=== PATIENT | male | born 1935 | race Hispanic/Latino ===

== ENCOUNTER 2016-11-18 16:49 | Inpatient (IN) | payer MEDICARE, BC ==
[2016-11-18 16:49] VITALS: BMI 26.2
[2016-11-18 17:44] LABS: ABG ALLEN TEST YES; ARTERIAL BLOOD GAS HCO3 27.6 mmol/L (21-28); ARTERIAL BLOOD GAS PH 7.51 (7.35-7.45); ARTERIAL BLOOD GAS PO2 55 mm/Hg (80-100)
[2016-11-18 17:49] LABS: BASO % 0.2 % (0.0-2.0); EOS % 0.2 % (0.0-4.0); HEMATOCRIT 25.9 % (35.0-51.0); LYMPH # 0.3 K/uL (1.0-4.3); LYMPH % 3.7 % (20.0-40.0); MEAN CELL VOLUME 90.7 fl (80.0-94.0); MEAN CORPUSCULAR HEMOGLOBIN 30.4 pg (27.0-31.0); MEAN CORPUSCULAR HGB CONC 33.5 g/dL (33.0-37.0); MONO # 0.2 K/uL (0.0-0.8); MONO % 3.2 % (0.0-10.0); NEUT # 6.5 K/uL (1.8-7.0); NEUT % 92.7 % (50.0-75.0); NRBC % 0.1 % (0.0-0.0); RED CELL DISTRIBUTION WIDTH 20.5 % (11.5-14.5)
--- NOTE | 2016-11-18 17:50 | ED PDOC ---
HPI: Fever Fever Onset Was: 11/18/16 (morning) The Fever Was Measured: Oral Recent Sick Contacts: No Have you had recent travel within the past 21 days to any of the following countries: [place], [place], [place] or [place]?: No Does Patient Have Hx Of Febrile Seizures: No Did The Patient Have A Seizure Today: No Symptoms Associated With Fever: Other (difficulty moving) Additional Comments: 81 year old male presents to ED with complaints of a fever since this morning and a past medical history of HTN, CAD, hyperlipidemia, and CVA. (+) difficulty moving, diaphoresis, rhinorrhea, cough, and decreased appetite. (-) sore throat, vomiting, diarrhea, rash, or swelling. 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 Denies recent travel or sick contacts. Past Medical History Reviewed: Historical Data, Nursing Documentation, Vital Signs Vital Signs: Last Vital Signs Temp 101.6 F H 11/18/16 16:52 Pulse 99 H 11/18/16 16:52 Resp 16 11/18/16 16:52 BP 151/66 H 11/18/16 16:52 Pulse Ox 95 11/18/16 18:20 - Medical History PMH: CAD, CVA, HTN, Hypercholesterolemia, Hyperlipidemia, Malignancy (MDS cancer ), Chronic Kidney Disease Denies: No Chronic Diseases, Diabetes - Surgical History Surgical History: CABG, Cholecystectomy, Pacemaker - Family History Family History: States: Unknown Family Hx - Living Arrangements Living Arrangements: With Family - Social History Current smoker - smoking cessation education provided: No Ex-Smoker (has not smoked in the last 12 months): No - Home Medications Home Medications: Ambulatory Orders Medication Instructions Recorded Aspirin [Aspirin Chewable] 81 mg PO DAILY 03/07/16 Gabapentin [Neurontin] 200 mg PO DAILY 03/07/16 Gabapentin [Neurontin] 300 mg PO HS 03/07/16 Metoprolol Succinate [Toprol XL] 50 mg PO DAILY 03/07/16 Simvastatin [Zocor] 80 mg PO DAILY 03/07/16 Solifenacin Succinate [Vesicare] 5 mg PO DAILY 03/07/16 Tamsulosin HCl [Flomax] 2 cap PO DAILY 03/07/16 Esomeprazole Magnesium [Nexium 22.3 mg PO DAILY 04/02/17 24Hr] - Allergies Allergies/Adverse Reactions: Allergies Allergy/AdvReac Type Severity Reaction Status Date / Time No Known Allergies Allergy Verified 11/18/16 16:52 Review of Systems ROS Statement: Except As Marked, All Systems Reviewed And Found Negative Constitutional: Positive for: Fever, Sweats, Weakness (difficulty moving) ENT: Positive for: Nose Discharge. Negative for: Throat Pain Respiratory: Positive for: Cough Gastrointestinal: Positive for: Other (decreased appetite). Negative for: Vomiting, Diarrhea Musculoskeletal: Negative for: Other (swelling) Skin: Negative for: Rash Physical Exam - Reviewed Nursing Documentation Reviewed: Yes Vital Signs Reviewed: Yes - Physical Exam Appears: Positive for: Non-toxic Skin: Positive for: Warm, Dry, Pallor Eye Exam: Positive for: Normal appearance ENT: Positive for: Pharynx Is (clear). Negative for: Normal ENT Inspection ( dry mucous membranes) Neck: Positive for: Normal Cardiovascular/Chest: Positive for: Regular Rate, Rhythm (regular rate), Tachycardia. Negative for: Murmur Respiratory: Positive for: Rhonchi (inspiratory/expiratory diffuse wet rhonchi) . Negative for: Normal Breath Sounds, Rales, Wheezing, Respiratory Distress Gastrointestinal/Abdominal: Positive for: Normal Exam, Soft. Negative for: Tenderness Extremity: Positive for: Swelling (trace bilateral pitting edema) Neurologic/Psych: Positive for: Alert, Oriented (x3), Other (slow to answer questions, but normal concentration and thought process) - Laboratory Results Result Diagrams: 11/18/16 17:30 11/18/16 17:30 - ECG O2 Sat by Pulse Oximetry: 95 (RA) Pulse Ox Interpretation: Normal Medical Decision Making Medical Decision Makin Initial impression: febrile illness, dehydration DDx (not limited to): sepsis, PNA, bacteremia, anemia, pneumotropic fever, UTI, viral illness, influenza Initial plan: * ABG Shock * EKG * Lipase * Labs * Magnesium * Phosphorus * Trop I * PTT/PT * CXR * Acetaminophen 975mg PO * BCx * UCx * Influenza A B * UA * Re-eval 1800 CXR shows right lower lobe PNA. ABG demonstrates mild hypoxia. Lactic acid level: 0.6. Pt meets criteria for sepsis with tachycardia and fever , but not severe sepsis. IV antibiotics ordered for PNA coverage. DW pt and spouse findings and plan of care. Scribe Attestation: Documented by Mandi Moya acting as a scribe for Indu Valdivia MD. Scribe Attestation: All medical record entries made by the Scribe were at my direction and personally dictated by me. I have reviewed the chart and agree that the record accurately reflects my personal performance of the history, physical exam, medical decision making, and the department course for this patient. I have also personally directed, reviewed, and agree with the discharge instructions and disposition. Disposition - Clinical Impression Clinical Impression: Pneumonia Discussed With Dr.: Edward Morejon Doctor Will See Patient In The: Hospital Counseled Patient/Family Regarding: Studies Performed, Diagnosis - Disposition Disposition Time: 18:00 Condition: FAIR - Pt Status Changed To: Hospital Disposition Of: Inpatient - Admit Certification Admit to Inpatient:: After my assessment, the patient will require hospitalization for at least two midnights. This is because of the severity of symptoms shown, intensity of services needed, and/or the medical risk in this patient being treated as an outpatient. - POA Present On Arrival: None
[2016-11-18 17:59] LABS: ALB/GLOB RATIO 1.7 (1.0-2.1); ALKALINE PHOSPHATASE 62 U/L (38-126); ALT/SGPT 29 U/L (21-72); AST/SGOT 27 U/L (17-59); BILIRUBIN,TOTAL 2.7 mg/dl (0.2-1.3); BLOOD UREA NITROGEN 25 mg/dl (9-20); CALCIUM 8.9 mg/dL (8.4-10.2); CARBON DIOXIDE 26 mmol/L (22-30); CHLORIDE 104 mmol/L (98-107); GFR AFRICAN-AMERICAN > 60; GLUCOSE,RANDOM 120 mg/dL (75-110); LIPASE 65 U/L (23-300); MAGNESIUM 1.9 MG/DL (1.6-2.3); PHOSPHOROUS 2.3 mg/dl (2.5-4.5); POTASSIUM 4.7 MMOL/L (3.6-5.0); SODIUM 136 mmol/l (132-148)
[2016-11-18 18:20] LABS: PARTIAL THROMBOPLASTIN TIME 31.1 SECONDS (23.3-32.5)
[2016-11-18] MEDS ORDERED: cefTRIAXone (Rocephin) 1 gm Inj ONE (18:45)
[2016-11-18] MEDS ORDERED: Azithromycin 500 MG in Sodium Chloride 0.9% 250 ML IVPB STA (18:45)
[2016-11-18 19:08] LABS: PLATELET COUNT 104 K/uL (130-400)
[2016-11-18 19:24] LABS: EOSINOPHIL 1 % (0-7); NEUTROPHIL 92 % (42-75); SPHEROCYTES SLIGHT; TOTAL CELLS COUNTED 100
[2016-11-18 19:25] LABS: ACANTHOCYTES SLIGHT; GIANT PLATELETS PRESENT; LARGE PLATELETS PRESENT
--- NOTE | 2016-11-18 21:27 | RAD ---
HISTORY: cough fever COMPARISON: 02/17/2016 FINDINGS: LUNGS: Mild hazy opacity in the right lung base. PLEURA: No significant pleural effusion identified, no pneumothorax apparent.Biapical pleural parenchymal thickening noted. CARDIOVASCULAR: Enlarged heart. OSSEOUS STRUCTURES: The osseous structures demonstrate degenerative changes. VISUALIZED UPPER ABDOMEN: Upper abdomen is suboptimally evaluated. OTHER FINDINGS: Pacemaker noted. Midline sternotomy wires noted. IMPRESSION: Mild hazy opacity in the right lung base.
[2016-11-18] MEDS ORDERED: guaiFENesin DM 200 mg-20 mg/10 ml UD PO PRN (22:25)
[2016-11-18] MEDS ORDERED: Albuterol-Ipratrop 3 mg / 0.5 (3 ml) UD INH PRN (22:35)
[2016-11-18] MEDS: Dextrose 5%/0.45% NS 1,000 ML IV SCH (23:06)
[2016-11-19 04:25] LABS: RBC URINE 3 /hpf (0-3); URINE BILIRUBIN NEGATIVE (NEGATIVE); URINE BLOOD NEGATIVE (NEGATIVE); URINE COLOR AMBER (YELLOW); URINE GLUCOSE (UA) NEG (Normal); URINE KETONE NEGATIVE (NEGATIVE); URINE LEUKOCYTE ESTERASE NEG Leu/uL (Negative); URINE PROTEIN 30 mg/dL (NEGATIVE); WBC URINE < 1 /hpf (0-5)
[2016-11-19 07:29] LABS: HEMATOCRIT 22.8 % (35.0-51.0); MEAN CORPUSCULAR HEMOGLOBIN 30.9 pg (27.0-31.0); MEAN CORPUSCULAR HGB CONC 33.9 g/dL (33.0-37.0); RED CELL DISTRIBUTION WIDTH 20.8 % (11.5-14.5); WHITE BLOOD COUNT 6.6 K/uL (4.8-10.8)
[2016-11-19 07:52] LABS: CALCIUM 8.5 mg/dL (8.4-10.2); POTASSIUM 4.4 MMOL/L (3.6-5.0)
--- NOTE | 2016-11-19 08:32 | CARD ---
APPROVED REPORT EKG Measurement Heart [id number] MD [id number] <Conclusion> Sinus tachycardia Right bundle branch block Left anterior fascicular block Bifascicular block Abnormal ECG
[2016-11-19] MEDS ORDERED: Patient's Own Med (Solifenacin Succinate [Vesicare] 5 MG) PO SCH (09:00)
[2016-11-19] MEDS ORDERED: ESOMEPRAZOLE MAGNESIUM 22.3 MG PO SCH (09:00)
[2016-11-19] MEDS ORDERED: Enoxaparin 30 mg Syringe SC SCH ×3 (09:00)
[2016-11-19] MEDS: Pantoprazole 40 mg EC Tab PO SCH (09:12)
[2016-11-19] MEDS: Metoprolol Succinate 50 mg XL Tab PO SCH (09:14)
[2016-11-19] MEDS: Azithromycin 500 MG in Sodium Chloride 0.9% 250 ML IVPB SCH (09:18)
--- NOTE | 2016-11-19 11:28 | CP.PCM.CON ---
History of Present Illness - History of Present Illness History of Present Illness: This 81 year old man presented to the emergency room with one day of fever, chills, fatigue and productive cough. He had no chest pain, SOB or hemoptysis. Sputum did have yellow color. A chest x-ray revealed hazy density at the right base, no clear consolidation, unable to see left CP angle because of overlying monitor cables, cardiomegaly (chronic). He feels well this morning and has no cough or SOB, no chest pain, no sputum expectoration. Past Patient History - Past Medical History & Family History Past Medical History?: Yes - Past Social History Smoking Status: Never Smoked Chewing Tobacco Use: No Cigar Use: No Alcohol: Social Drugs: Denies - CARDIAC Hx Heart Attack: Yes (1983) Hx Hypercholesterolemia: Yes Hx Hypertension: Yes Hx Pacemaker: Yes Other/Comment: Aortic valve disease. - PULMONARY Hx Pneumonia: Yes Other/Comment: Empyema. - NEUROLOGICAL HX Cerebrovascular Accident: Yes - HEENT Hx Cataracts: Yes (LEFT EYE) - RENAL Other/Comment: congenital abscence of one kidney. - ENDOCRINE/METABOLIC Hx Endocrine Disorders: No - HEMATOLOGICAL/ONCOLOGICAL Hx Cancer: Yes (MYELOPLASTIC DYSPLASTIC DISORDER) Hx Human Immunodeficiency Virus (HIV): No Other/Comment: ONGOING CHEMOTHERAPHY. Low platelet - INTEGUMENTARY Hx Dermatological Problems: No - MUSCULOSKELETAL/RHEUMATOLOGICAL Hx Falls: No Other/Comment: BACK SURGERY - GASTROINTESTINAL Hx Gall Bladder Disease: Yes - GENITOURINARY/GYNECOLOGICAL Hx Prostate Problems: Yes - PSYCHIATRIC Hx Psychophysiologic Disorder: No - SURGICAL HISTORY Hx Cataract Extraction: Yes Hx Cholecystectomy: Yes Hx Coronary Artery Bypass Graft: Yes Other/Comment: Thoracotomy (right) for empyema. - ANESTHESIA Hx Anesthesia: Yes Hx Anesthesia Reactions: No Hx Malignant Hyperthermia: No Meds Allergies/Adverse Reactions: Allergies Allergy/AdvReac Type Severity Reaction Status Date / Time No Known Allergies Allergy Verified 11/18/16 16:52 - Medications Medications: Current Medications Acetaminophen (Tylenol 325mg Tab) 650 mg PO Q4 PRN PRN Reason: Fever >100.4 F Albuterol/Ipratropium (Duoneb 3 Mg/0.5 Mg (3 Ml) Ud) 3 ml INH RQ6 PRN PRN Reason: Shortness of Breath Aspirin (Aspirin Chewable) 81 mg PO DAILY [facility] Last Admin: 11/19/16 09:13 Dose: 81 mg Atorvastatin Calcium (Lipitor) 40 mg PO DAILY@2100 [facility] Gabapentin (Neurontin) 200 mg PO DAILY [facility] Last Admin: 11/19/16 09:13 Dose: 200 mg Gabapentin (Neurontin) 300 mg PO HS [facility] Last Admin: 11/18/16 23:06 Dose: 300 mg Guaifenesin/Dextromethorphan (Robitussin Dm) 10 ml PO TID PRN PRN Reason: Cough Ceftriaxone Sodium 1 gm/ (Sodium Chloride) 100 mls @ 100 mls/hr IVPB DAILY [facility] Last Admin: 11/19/16 09:14 Dose: 100 mls/hr Azithromycin 500 mg/ Sodium (Chloride) 250 mls @ 250 mls/hr IVPB DAILY [facility] Last Admin: 11/19/16 09:18 Dose: 250 mls/hr Dextrose/Sodium Chloride (Dextrose 5%/0.45% Ns 1000 Ml) 1,000 mls @ 60 mls/hr IV [id number] [facility] Stop: 11/19/16 22:46 Last Admin: 11/18/16 23:06 Dose: 60 mls/hr Metoprolol Succinate (Toprol Xl) 50 mg PO DAILY [facility] Last Admin: 11/19/16 09:14 Dose: 50 mg Pantoprazole Sodium (Protonix Ec Tab) 40 mg PO DAILY [facility] Last Admin: 11/19/16 09:12 Dose: 40 mg Tamsulosin HCl (Flomax) 0.8 mg PO DAILY@2100 [facility] Physical Exam - Additional Findings Additional findings: Appears comfortable during the exam. Trace dependant edema, no cyanosis. No jaundice. Neck is supple and trachea midline. No palpable lymphadenopathy. Pharynx pink and moist w/o exudate. No dullness on chest percussion. Healed thoracostomy site. Soft, lipomatous chest wall mass anterior right. Diminished breath sounds at the right base posteriorly. Few sonorous rhonchi at the RLL area, no wheeze. No bronchial breath sounds or egophony. Few medium rales in the right base. Left lung is essentially clear. Heart sounds well heard, regular rhythm. Healed sternal scar. Abdomen is soft and non-tender. Results - Vital Signs Recent Vital Signs: Last Vital Signs Temp 98.3 F 11/19/16 08:24 Pulse 88 11/19/16 09:14 Resp 18 11/19/16 08:24 BP 112/57 L 11/19/16 09:14 Pulse Ox 94 L 11/19/16 08:24 - Labs Result Diagrams: 11/20/16 06:15 11/19/16 05:35 Labs: Laboratory Results - last 24 hr 11/19/16 11/19/16 04:05 05:35 WBC 6.6 RBC 2.51 L Hgb 7.7 L Hct 22.8 L MCV 91.0 MCH 30.9 MCHC 33.9 RDW 20.8 H Plt Count 75 L D Sodium 141 Potassium 4.4 Chloride 104 Carbon Dioxide 27 Anion Gap 15 BUN 29 H Creatinine 1.5 Est GFR ( Amer) 54 Est GFR (Non-Af Amer) 45 Random Glucose 112 H Calcium 8.5 Urine Color Rachel Urine Clarity Clear Urine pH 5.0 Ur Specific Gilchrist 1.024 Urine Protein 30 Urine Glucose (UA) Neg Urine Ketones Negative Urine Blood Negative Urine Nitrate Negative Urine Bilirubin Negative Urine Urobilinogen 4.0 Ur Leukocyte Esterase Neg Urine RBC (Auto) 3 Urine Microscopic WBC < 1 Assessment & Plan (1) Pneumonia Status: Acute Priority: High Comment: Right basal infiltrate with fever and no leukocytosis. Appears comfortable this morning, afebrile. If afebrile today and no worsening of CXR to be done in AM he can be switched to oral antibiotic and discharged. (2) MDS (myelodysplastic syndrome) Status: Chronic Priority: High Comment: On chemotherapy at [facility]. (3) Thrombocytopenia Status: Chronic Priority: High Comment: Secondary to the above. - Date & Time Date: 11/19/16 Time: 11:26
[2016-11-19] MEDS: Dextrose 5%/0.45% NS 1,000 ML IV SCH (16:28)
--- NOTE | 2016-11-20 06:19 | CP.PCM.HP ---
History of Present Illness - History of Present Illness History of Present Illness: This is an 81 y/o male with hx of HTN CAD and currently receiving chemotherapy for myelodysplastic syndrome was admitted thru ER for sx of productive cough with yellow greenish phlegm and low grade fever, for 1 day. CXR showed a possible infiltrate on the right lower lung. Present on Admission - Present on Admission Any Indicators Present on Admission: No History of DVT/PE: No History of Uncontrolled Diabetes: No Urinary Catheter: No Decubitus Ulcer Present: No Past Patient History - Past Medical History & Family History Past Medical History?: Yes - Past Social History Smoking Status: Never Smoked Chewing Tobacco Use: No Cigar Use: No Alcohol: Social Drugs: Denies - CARDIAC Hx Heart Attack: Yes (1983) Hx Hypercholesterolemia: Yes Hx Hypertension: Yes Hx Pacemaker: Yes Other/Comment: Aortic valve disease. - PULMONARY Hx Pneumonia: Yes Other/Comment: Empyema. - NEUROLOGICAL HX Cerebrovascular Accident: Yes - HEENT Hx Cataracts: Yes (LEFT EYE) - RENAL Other/Comment: congenital abscence of one kidney. - ENDOCRINE/METABOLIC Hx Endocrine Disorders: No - HEMATOLOGICAL/ONCOLOGICAL Hx Cancer: Yes (MYELOPLASTIC DYSPLASTIC DISORDER) Hx Human Immunodeficiency Virus (HIV): No Other/Comment: ONGOING CHEMOTHERAPHY. Low platelet - INTEGUMENTARY Hx Dermatological Problems: No - MUSCULOSKELETAL/RHEUMATOLOGICAL Hx Falls: No Other/Comment: BACK SURGERY - GASTROINTESTINAL Hx Gall Bladder Disease: Yes - GENITOURINARY/GYNECOLOGICAL Hx Prostate Problems: Yes - PSYCHIATRIC Hx Psychophysiologic Disorder: No - SURGICAL HISTORY Hx Cataract Extraction: Yes Hx Cholecystectomy: Yes Hx Coronary Artery Bypass Graft: Yes Other/Comment: Thoracotomy (right) for empyema. - ANESTHESIA Hx Anesthesia: Yes Hx Anesthesia Reactions: No Hx Malignant Hyperthermia: No Meds Allergies/Adverse Reactions: Allergies Allergy/AdvReac Type Severity Reaction Status Date / Time No Known Allergies Allergy Verified 11/18/16 16:52 Physical Exam - Head Exam Head Exam: NORMAL INSPECTION - Eye Exam Eye Exam: Normal appearance - ENT Exam ENT Exam: Mucous Membranes Moist - Respiratory Exam Respiratory Exam: Decreased Breath Sounds, Rales, Rhonchi, NORMAL BREATHING PATTERN Additional comments: noted crepitations on the right mid and lower lung - Cardiovascular Exam Cardiovascular Exam: REGULAR RHYTHM - GI/Abdominal Exam GI & Abdominal Exam: Normal Bowel Sounds - Neurological Exam Neurological exam: CN II-XII Intact, Oriented x3 - Psychiatric Exam Psychiatric exam: Normal Mood Results - Vital Signs Recent Vital Signs: Last Vital Signs Temp 98.6 F 11/20/16 05:00 Pulse 81 11/20/16 05:00 Resp 20 11/20/16 05:00 BP 114/61 11/20/16 05:00 Pulse Ox 95 11/20/16 05:00 - Labs Result Diagrams: 11/19/16 05:35 11/19/16 05:35 Labs: Laboratory Results - last 24 hr 11/19/16 05:35 WBC 6.6 RBC 2.51 L Hgb 7.7 L Hct 22.8 L MCV 91.0 MCH 30.9 MCHC 33.9 RDW 20.8 H Plt Count 75 L D Sodium 141 Potassium 4.4 Chloride 104 Carbon Dioxide 27 Anion Gap 15 BUN 29 H Creatinine 1.5 Est GFR ( Amer) 54 Est GFR (Non-Af Amer) 45 Random Glucose 112 H Calcium 8.5 Assessment & Plan (1) Pneumonia Status: Acute Priority: High (2) MDS (myelodysplastic syndrome) Status: Chronic Priority: High (3) Thrombocytopenia Status: Chronic Priority: High (4) Anemia Status: Acute (5) Dehydration Status: Acute - Assessment and Plan (Free Text) Plan: Cont meds cont hydration repeat cbc cmp in am cont iv antibiotic Pulmonary eval Dr Soliz Cardiac eval Dr Ocampo. may need epogen
[2016-11-20] MEDS ORDERED: EPOETIN ALFA 10,000 UNIT/ML ML SC ONE (06:24)
[2016-11-20 07:07] LABS: HEMATOCRIT 22.5 % (35.0-51.0); MEAN CELL VOLUME 92.3 fl (80.0-94.0); MEAN CORPUSCULAR HEMOGLOBIN 30.2 pg (27.0-31.0); MEAN CORPUSCULAR HGB CONC 32.7 g/dL (33.0-37.0); RED CELL DISTRIBUTION WIDTH 21.5 % (11.5-14.5); WHITE BLOOD COUNT 5.3 K/uL (4.8-10.8)
--- NOTE | 2016-11-20 07:38 | CP.PCM.PN ---
Subjective - Date & Time of Evaluation Date of Evaluation: 11/20/16 Time of Evaluation: 07:15 - Subjective Subjective: 81M seen and examined at bedside. Overnight events, notes reviewed. Pt reports feeling better, currently denies SOB, chest pain. Objective - Vital Signs/Intake and Output Vital Signs (last 24 hours): Temp Pulse Resp BP Pulse Ox 37.0 C 81 20 114/61 95 11/20/16 05:00 11/20/16 05:00 11/20/16 05:00 11/20/16 05:00 11/20/16 05:00 - Medications Medications: Current Medications Acetaminophen (Tylenol 325mg Tab) 650 mg PO Q4 PRN PRN Reason: Fever >100.4 F Last Admin: 11/20/16 01:53 Dose: 650 mg Albuterol/Ipratropium (Duoneb 3 Mg/0.5 Mg (3 Ml) Ud) 3 ml INH RQ6 PRN PRN Reason: Shortness of Breath Aspirin (Aspirin Chewable) 81 mg PO DAILY [facility] Last Admin: 11/19/16 09:13 Dose: 81 mg Atorvastatin Calcium (Lipitor) 40 mg PO DAILY@2099 [facility] Last Admin: 11/19/16 21:21 Dose: 40 mg Gabapentin (Neurontin) 200 mg PO DAILY [facility] Last Admin: 11/19/16 09:13 Dose: 200 mg Gabapentin (Neurontin) 300 mg PO HS [facility] Last Admin: 11/19/16 21:21 Dose: 300 mg Guaifenesin/Dextromethorphan (Robitussin Dm) 10 ml PO TID PRN PRN Reason: Cough Ceftriaxone Sodium 1 gm/ (Sodium Chloride) 100 mls @ 100 mls/hr IVPB DAILY [facility] Last Admin: 11/19/16 09:14 Dose: 100 mls/hr Azithromycin 500 mg/ Sodium (Chloride) 250 mls @ 250 mls/hr IVPB DAILY [facility] Last Admin: 11/19/16 09:18 Dose: 250 mls/hr Metoprolol Succinate (Toprol Xl) 50 mg PO DAILY [facility] Last Admin: 11/19/16 09:14 Dose: 50 mg Pantoprazole Sodium (Protonix Ec Tab) 40 mg PO DAILY [facility] Last Admin: 11/19/16 09:12 Dose: 40 mg Tamsulosin HCl (Flomax) 0.8 mg PO DAILY@2100 [facility] Last Admin: 11/19/16 21:21 Dose: 0.8 mg - Labs Labs: 11/20/16 06:15 11/19/16 05:35 PT 12.6 SECONDS (9.6-11.2) H 11/18/16 17:30 INR 1.21 (0.92-1.08) H 11/18/16 17:30 APTT 31.1 SECONDS (23.3-32.5) 11/18/16 17:30 - Constitutional Appears: Well, Non-toxic, No Acute Distress - Head Exam Head Exam: ATRAUMATIC, NORMAL INSPECTION - Eye Exam Eye Exam: EOMI, Normal appearance - ENT Exam ENT Exam: Mucous Membranes Dry - Neck Exam Neck Exam: Full ROM. absent: Lymphadenopathy - Respiratory Exam Respiratory Exam: Rhonchi (coarse bibasilar), Wheezes, NORMAL BREATHING PATTERN - Cardiovascular Exam Cardiovascular Exam: REGULAR RHYTHM (Paced). absent: JVD - GI/Abdominal Exam GI & Abdominal Exam: Soft, Normal Bowel Sounds. absent: Tenderness - Extremities Exam Extremities Exam: Full ROM, Normal Capillary Refill, Normal Inspection. absent : Pedal Edema - Neurological Exam Neurological Exam: Alert, Awake, Oriented x3 - Psychiatric Exam Psychiatric exam: Normal Affect, Normal Mood - Skin Skin Exam: Normal Color, Warm Assessment and Plan (1) Pneumonia Assessment & Plan: RLL pneumonia this AM w/associated effusion and continuing to be febrile throughout the night. - Pulmonary Consult (Dr Soliz) noted: rec change abx and rpt decubitus CXR in AM 4/5 - Abx changed to Levoquin/Clindamycin - Trend fever - Incentive spiromtery - c/w Guaifensin - OOB to chair Status: Acute (2) Dehydration Assessment & Plan: Likely 2/2 to illness and poor PO intake. - Encourage PO hydration - CMP in AM Status: Acute (3) DVT prophylaxis Assessment & Plan: Not a candidate for Lovenox or Heparin. SCDs, b/l lower extremities, continuous while in bed Status: Acute (4) MDS (myelodysplastic syndrome) Assessment & Plan: Chronic, stable, managed at [place] by Dr Cuevas. Has anemia/ thrombocytopenia as a result. Manual platelet count- 80. - Heme/Onc Consult (Dr Jose Daniel Ocampo) appreciated. - Procrit x1 - CBC in AM Status: Chronic (5) Hypertension Assessment & Plan: Well-controlled - c/w home medications Status: Chronic (6) BPH (benign prostatic hypertrophy) Assessment & Plan: Well-controlled - c/w home medications Status: Chronic - Assessment and Plan (Free Text) Assessment: 81M with history of RIGHT thoracotomy for empyema now with RLL pneumonia and associated effusion not responding to initial abx. In addition, history of MDS and associated anemia/thrombocytopenia manual platelet count-80 and procrit x1. - f/u Pulmonary recs - f/u Heme/Onc recs - Started Levo/Clindamycin - Trend fever - Decubitus CXR in AM
[2016-11-20] MEDS: Pantoprazole 40 mg EC Tab PO SCH (08:45)
[2016-11-20] MEDS: Metoprolol Succinate 50 mg XL Tab PO SCH (08:46)
[2016-11-20] MEDS: Azithromycin 500 MG in Sodium Chloride 0.9% 250 ML IVPB SCH (08:46)
[2016-11-20 09:24] LABS: IRON 11 ug/dL (49-181)
--- NOTE | 2016-11-20 10:22 | CP.PCM.PN ---
Subjective - Date & Time of Evaluation Date of Evaluation: 11/20/16 Time of Evaluation: 10:18 - Subjective Subjective: Had febrile pattern yesterday evening and again early this morning. No increased leukocytosis. Repeat CXR shows persistent RLL infiltrate and small right pleural effusion. Not suitable for discharge. Will need to change antibiotic coverage; possibly vanco/zosyn or levofloxacin/ clindamycin. Patient informed of the status, resident paged. Lateral decubitus CXR for the AM tomorrow. Objective - Vital Signs/Intake and Output Vital Signs (last 24 hours): Temp Pulse Resp BP Pulse Ox 98 F 82 18 134/69 98 11/20/16 07:49 11/20/16 08:46 11/20/16 07:49 11/20/16 08:46 11/20/16 07:49 Intake and Output: 11/19/16 11/20/16 23:59 11:59 Intake Total 350 Output Total 200 Balance 150 - Medications Medications: Current Medications Acetaminophen (Tylenol 325mg Tab) 650 mg PO Q4 PRN PRN Reason: Fever >100.4 F Last Admin: 11/20/16 01:53 Dose: 650 mg Albuterol/Ipratropium (Duoneb 3 Mg/0.5 Mg (3 Ml) Ud) 3 ml INH RQ6 PRN PRN Reason: Shortness of Breath Aspirin (Aspirin Chewable) 81 mg PO DAILY [facility] Last Admin: 11/20/16 08:44 Dose: 81 mg Atorvastatin Calcium (Lipitor) 40 mg PO DAILY@2100 [facility] Last Admin: 11/19/16 21:21 Dose: 40 mg Gabapentin (Neurontin) 200 mg PO DAILY [facility] Last Admin: 11/20/16 08:44 Dose: 200 mg Gabapentin (Neurontin) 300 mg PO HS [facility] Last Admin: 11/19/16 21:21 Dose: 300 mg Guaifenesin/Dextromethorphan (Robitussin Dm) 10 ml PO TID PRN PRN Reason: Cough Ceftriaxone Sodium 1 gm/ (Sodium Chloride) 100 mls @ 100 mls/hr IVPB DAILY [facility] Last Admin: 11/20/16 08:45 Dose: 100 mls/hr Azithromycin 500 mg/ Sodium (Chloride) 250 mls @ 250 mls/hr IVPB DAILY [facility] Last Admin: 11/20/16 08:46 Dose: 250 mls/hr Metoprolol Succinate (Toprol Xl) 50 mg PO DAILY [facility] Last Admin: 11/20/16 08:46 Dose: 50 mg Pantoprazole Sodium (Protonix Ec Tab) 40 mg PO DAILY [facility] Last Admin: 11/20/16 08:45 Dose: 40 mg Tamsulosin HCl (Flomax) 0.8 mg PO DAILY@2100 [facility] Last Admin: 11/19/16 21:21 Dose: 0.8 mg - Labs Labs: 11/20/16 06:15 11/19/16 05:35 PT 12.6 SECONDS (9.6-11.2) H 11/18/16 17:30 INR 1.21 (0.92-1.08) H 11/18/16 17:30 APTT 31.1 SECONDS (23.3-32.5) 11/18/16 17:30 Assessment and Plan (1) Pneumonia Status: Acute (2) MDS (myelodysplastic syndrome) Status: Chronic (3) Thrombocytopenia Status: Chronic
--- NOTE | 2016-11-20 10:35 | RAD ---
HISTORY: pneumonia COMPARISON: 11/18/2016 TECHNIQUE: Chest PA and lateral FINDINGS: LUNGS: There is worsening right lower lobe airspace disease. The left lung is clear. PLEURA: There is a small right pleural effusion No significant left pleural effusion identified. No pneumothorax apparent. CARDIOVASCULAR: There is persistent cardiomegaly. Status post CABG. There is stable position of a left-sided dual lead transvenous permanent pacing device. OSSEOUS STRUCTURES: No significant abnormalities. VISUALIZED UPPER ABDOMEN: Normal. OTHER FINDINGS: None. IMPRESSION: Worsening right lower lobe pneumonia and small right pleural effusion.
--- NOTE | 2016-11-20 11:04 | CP.PCM.CON ---
History of Present Illness - History of Present Illness History of Present Illness: This is a 81 yrs old male who was admitted for pneumonia, chills and fever. He was diagnosed to have a thrombocytopenia but even after follow up for some time his count did not go up. 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 He was started on chemotherapy with vidaza 5 days every 28 days, Pt' s counts were doing well so the dose was cut to 4 days q 28 days. He was due for chemo on November 19, but he developed a cough ,had fever, and the CXR showed pneumonia. He was admitted and started on ceftriaxone and azithromaycin. He is afebrile and feeling a little better. His CBC showed a WBC 5.30, Hgb 7.4gms and platelets 70K. According to the pt he has not had such a low count in a long time.. No bleeding from any site. Past Patient History - Past Medical History & Family History Past Medical History?: Yes - Past Social History Smoking Status: Never Smoked Chewing Tobacco Use: No Cigar Use: No Alcohol: Social Drugs: Denies - CARDIAC Hx Heart Attack: Yes (1983) Hx Hypercholesterolemia: Yes Hx Hypertension: Yes Hx Pacemaker: Yes Other/Comment: Aortic valve disease. - PULMONARY Hx Pneumonia: Yes Other/Comment: Empyema. - NEUROLOGICAL HX Cerebrovascular Accident: Yes - HEENT Hx Cataracts: Yes (LEFT EYE) - RENAL Other/Comment: congenital abscence of one kidney. - ENDOCRINE/METABOLIC Hx Endocrine Disorders: No - HEMATOLOGICAL/ONCOLOGICAL Hx Cancer: Yes (MYELOPLASTIC DYSPLASTIC DISORDER) Hx Human Immunodeficiency Virus (HIV): No Other/Comment: ONGOING CHEMOTHERAPHY. Low platelet - INTEGUMENTARY Hx Dermatological Problems: No - MUSCULOSKELETAL/RHEUMATOLOGICAL Hx Falls: No Other/Comment: BACK SURGERY - GASTROINTESTINAL Hx Gall Bladder Disease: Yes - GENITOURINARY/GYNECOLOGICAL Hx Prostate Problems: Yes - PSYCHIATRIC Hx Psychophysiologic Disorder: No - SURGICAL HISTORY Hx Cataract Extraction: Yes Hx Cholecystectomy: Yes Hx Coronary Artery Bypass Graft: Yes Other/Comment: Thoracotomy (right) for empyema. - ANESTHESIA Hx Anesthesia: Yes Hx Anesthesia Reactions: No Hx Malignant Hyperthermia: No Meds Allergies/Adverse Reactions: Allergies Allergy/AdvReac Type Severity Reaction Status Date / Time No Known Allergies Allergy Verified 11/18/16 16:52 - Medications Medications: Current Medications Acetaminophen (Tylenol 325mg Tab) 650 mg PO Q4 PRN PRN Reason: Fever >100.4 F Last Admin: 11/20/16 01:53 Dose: 650 mg Albuterol/Ipratropium (Duoneb 3 Mg/0.5 Mg (3 Ml) Ud) 3 ml INH RQ6 PRN PRN Reason: Shortness of Breath Aspirin (Aspirin Chewable) 81 mg PO DAILY [facility] Last Admin: 11/20/16 08:44 Dose: 81 mg Atorvastatin Calcium (Lipitor) 40 mg PO DAILY@2100 [facility] Last Admin: 11/19/16 21:21 Dose: 40 mg Gabapentin (Neurontin) 200 mg PO DAILY [facility] Last Admin: 11/20/16 08:44 Dose: 200 mg Gabapentin (Neurontin) 300 mg PO HS [facility] Last Admin: 11/19/16 21:21 Dose: 300 mg Guaifenesin/Dextromethorphan (Robitussin Dm) 10 ml PO TID PRN PRN Reason: Cough Ceftriaxone Sodium 1 gm/ (Sodium Chloride) 100 mls @ 100 mls/hr IVPB DAILY [facility] Last Admin: 11/20/16 08:45 Dose: 100 mls/hr Azithromycin 500 mg/ Sodium (Chloride) 250 mls @ 250 mls/hr IVPB DAILY [facility] Last Admin: 11/20/16 08:46 Dose: 250 mls/hr Metoprolol Succinate (Toprol Xl) 50 mg PO DAILY [facility] Last Admin: 11/20/16 08:46 Dose: 50 mg Pantoprazole Sodium (Protonix Ec Tab) 40 mg PO DAILY [facility] Last Admin: 11/20/16 08:45 Dose: 40 mg Tamsulosin HCl (Flomax) 0.8 mg PO DAILY@2100 [facility] Last Admin: 11/19/16 21:21 Dose: 0.8 mg Physical Exam - Additional Findings Additional findings: Phyusical exam; Alert, well oriuented in no acute distress neck; supple, no mass, no h/s megaly Chest; Clear, no rales or rhonchi Heart; RSR, no murmur Abd; Soft, no mass, no h/s megaly Results - Vital Signs Recent Vital Signs: Last Vital Signs Temp 98 F 11/20/16 07:49 Pulse 82 11/20/16 08:46 Resp 18 11/20/16 07:49 BP 134/69 11/20/16 08:46 Pulse Ox 98 11/20/16 07:49 - Labs Result Diagrams: 11/20/16 06:15 11/19/16 05:35 Labs: Laboratory Results - last 24 hr 11/20/16 11/20/16 06:15 08:23 WBC 5.3 RBC 2.44 L Hgb 7.4 L Hct 22.5 L MCV 92.3 MCH 30.2 MCHC 32.7 L RDW 21.5 H Plt Count 70 L Iron 11 L TIBC 215 L % Saturation 5 L Ferritin 147.0 Vitamin B12 948 H Assessment & Plan - Assessment and Plan (Free Text) Assessment: Imp; Myelodysplastic syndrome, anemia , thrombocytopenia. Pneumonia. Plan: Plan; Will do a manual platelet count. He will continue the chemotherapy after his discharge from the hospital. Dr patel has already given him a epogen. Gilmer follow
[2016-11-20] MEDS: Clindamycin 600 MG in Sodium Chloride 0.9% 100 ML IVPB SCH (16:25)
[2016-11-21] MEDS: Clindamycin 600 MG in Sodium Chloride 0.9% 100 ML IVPB SCH ×3 (01:56→16:17)
[2016-11-21 06:50] LABS: BASO % 0.5 % (0.0-2.0); EOS # 0.1 K/uL (0.0-0.7); EOS % 2.8 % (0.0-4.0); HEMATOCRIT 20.6 % (35.0-51.0); LYMPH # 0.5 K/uL (1.0-4.3); LYMPH % 12.1 % (20.0-40.0); MEAN CELL VOLUME 93.4 fl (80.0-94.0); MEAN CORPUSCULAR HEMOGLOBIN 31.4 pg (27.0-31.0); MEAN CORPUSCULAR HGB CONC 33.6 g/dL (33.0-37.0); MEAN PLATELET VOLUME 11.6 fl (7.2-11.7); MONO # 0.4 K/uL (0.0-0.8); MONO % 9.2 % (0.0-10.0); NEUT # 3.2 K/uL (1.8-7.0); NEUT % 75.4 % (50.0-75.0); NRBC % 0.1 % (0.0-0.0); RED CELL DISTRIBUTION WIDTH 21.2 % (11.5-14.5); WHITE BLOOD COUNT 4.2 K/uL (4.8-10.8)
[2016-11-21 06:59] LABS: ALB/GLOB RATIO 1.3 (1.0-2.1); BILIRUBIN,TOTAL 1.9 mg/dl (0.2-1.3); CALCIUM 8.2 mg/dL (8.4-10.2); POTASSIUM 4.2 MMOL/L (3.6-5.0); TOTAL PROTEIN 5.4 G/DL (6.3-8.2)
--- NOTE | 2016-11-21 07:04 | CP.PCM.PN ---
Subjective - Date & Time of Evaluation Date of Evaluation: 11/21/16 Time of Evaluation: 06:45 - Subjective Subjective: 81M seen and examined at bedside with attending. Pt denies pain, SOB, chest pain, or palpitations, but c/o significant weakness and feeling "unsteady" when being assisted to bathroom. Objective - Vital Signs/Intake and Output Vital Signs (last 24 hours): Temp Pulse Resp BP Pulse Ox 36.9 C 86 16 117/70 97 11/21/16 05:08 11/21/16 04:12 11/21/16 04:12 11/21/16 04:12 11/21/16 04:12 - Medications Medications: Current Medications Acetaminophen (Tylenol 325mg Tab) 650 mg PO Q4 PRN PRN Reason: Fever >100.4 F Last Admin: 11/21/16 04:08 Dose: 650 mg Albuterol/Ipratropium (Duoneb 3 Mg/0.5 Mg (3 Ml) Ud) 3 ml INH RQ6 PRN PRN Reason: Shortness of Breath Last Admin: 11/21/16 02:31 Dose: 3 ml Aspirin (Aspirin Chewable) 81 mg PO DAILY [facility] Last Admin: 11/20/16 08:44 Dose: 81 mg Atorvastatin Calcium (Lipitor) 40 mg PO DAILY@2100 [facility] Last Admin: 11/20/16 21:41 Dose: 40 mg Gabapentin (Neurontin) 200 mg PO DAILY [facility] Last Admin: 11/20/16 08:44 Dose: 200 mg Gabapentin (Neurontin) 300 mg PO HS [facility] Last Admin: 11/20/16 21:41 Dose: 300 mg Guaifenesin/Dextromethorphan (Robitussin Dm) 10 ml PO TID PRN PRN Reason: Cough Levofloxacin/Dextrose (Levaquin 750mg) 150 mls @ 100 mls/hr IVPB DAILY [facility] Clindamycin Phosphate 600 mg/ (Sodium Chloride) 104 mls @ 104 mls/hr IVPB Q8 [facility] Last Admin: 11/21/16 01:56 Dose: 104 mls/hr Metoprolol Succinate (Toprol Xl) 50 mg PO DAILY [facility] Last Admin: 11/20/16 08:46 Dose: 50 mg Pantoprazole Sodium (Protonix Ec Tab) 40 mg PO DAILY [facility] Last Admin: 11/20/16 08:45 Dose: 40 mg Tamsulosin HCl (Flomax) 0.8 mg PO DAILY@2100 [facility] Last Admin: 11/20/16 21:42 Dose: 0.8 mg - Labs Labs: 11/20/16 06:15 11/19/16 05:35 PT 12.6 SECONDS (9.6-11.2) H 11/18/16 17:30 INR 1.21 (0.92-1.08) H 11/18/16 17:30 APTT 31.1 SECONDS (23.3-32.5) 11/18/16 17:30 - Constitutional Appears: Non-toxic, No Acute Distress - Head Exam Head Exam: ATRAUMATIC, NORMAL INSPECTION - Eye Exam Eye Exam: EOMI, Normal appearance. absent: Conjunctival injection (pale conjunctiva) - ENT Exam ENT Exam: Mucous Membranes Moist, Normal Exam - Neck Exam Neck Exam: Full ROM, Normal Inspection - Respiratory Exam Respiratory Exam: Decreased Breath Sounds (R>L), Wheezes (b/l diffuse ), NORMAL BREATHING PATTERN - Cardiovascular Exam Cardiovascular Exam: REGULAR RHYTHM. absent: JVD - GI/Abdominal Exam GI & Abdominal Exam: Soft, Normal Bowel Sounds. absent: Tenderness - Extremities Exam Extremities Exam: Full ROM, Normal Capillary Refill, Normal Inspection. absent : Pedal Edema - Neurological Exam Neurological Exam: Alert, Awake, Oriented x3 - Psychiatric Exam Psychiatric exam: Normal Affect, Normal Mood - Skin Skin Exam: Intact, Pallor, Warm Assessment and Plan (1) Pneumonia Assessment & Plan: RLL pneumonia (suspect bacterial) febrile to 38.1 o/n however current abx regimen <24hrs. - f/u Pulmonary Consult (Dr Soliz) recs - c/w Levoquin/Clindamycin - Trend fever - Incentive spiromtery, Q2H - c/w Guaifensin, DuoNebs - OOB to chair, BRP w/assistance - Physical Therapy Status: Acute (2) Dehydration Assessment & Plan: Clinically improved, although with BUN increase this AM. - c/w Encourage PO hydration - CMP in AM - Will monitor Status: Acute (3) DVT prophylaxis Assessment & Plan: Not a candidate for Lovenox or Heparin. SCDs, b/l lower extremities, continuous. Status: Acute (4) MDS (myelodysplastic syndrome) Assessment & Plan: Chronic, however H/H continue to decrease despite Procrit x1 yesterday. Patient symptomatic and Heme/Onc recommending PRBC transfusion at this time x2U. Will discuss possible role of antibiotics w/ Dr Ocampo. - Heme/Onc Consult (Dr Jose Daniel Ocampo): T&S w/crossmatch, 2U PRBC, - Repeat CBC this evening after transfusion - CBC in AM Status: Chronic (5) Hypertension Assessment & Plan: Well-controlled - c/w home medications Status: Chronic (6) BPH (benign prostatic hypertrophy) Assessment & Plan: Well-controlled - c/w home medications Status: Chronic - Assessment and Plan (Free Text) Assessment: 81M w/hx RIGHT thoracotomy for empyema now with RLL pneumonia some improvement after changing abx. However, worsening anemia 2/2 to MDS prompting PRBC transfusion. - f/u Pulmonary recs - f/u Heme/Onc recs - c/w Levo/Clindamycin - PRBC x2U - Trend fever - f/u official read Decubitus CXR
--- NOTE | 2016-11-21 08:38 | CP.PCM.PN ---
Subjective - Date & Time of Evaluation Date of Evaluation: 11/21/16 Time of Evaluation: 08:34 - Subjective Subjective: Pt is feeling very weak today. and says it is much more than usual. His hgb today is 6.9ms and I have a consent for transfusion of 2 units o.f packed cells. Will ck if there are any antibodies against the RBC. Objective - Vital Signs/Intake and Output Vital Signs (last 24 hours): Temp Pulse Resp BP Pulse Ox 97.7 F 78 18 123/66 99 11/21/16 08:00 11/21/16 08:00 11/21/16 08:00 11/21/16 08:00 11/21/16 08:00 - Medications Medications: Current Medications Acetaminophen (Tylenol 325mg Tab) 650 mg PO Q4 PRN PRN Reason: Fever >100.4 F Last Admin: 11/21/16 04:08 Dose: 650 mg Albuterol/Ipratropium (Duoneb 3 Mg/0.5 Mg (3 Ml) Ud) 3 ml INH RQ6 PRN PRN Reason: Shortness of Breath Last Admin: 11/21/16 02:31 Dose: 3 ml Aspirin (Aspirin Chewable) 81 mg PO DAILY [facility] Last Admin: 11/20/16 08:44 Dose: 81 mg Atorvastatin Calcium (Lipitor) 40 mg PO DAILY@2100 [facility] Last Admin: 11/20/16 21:41 Dose: 40 mg Gabapentin (Neurontin) 200 mg PO DAILY [facility] Last Admin: 11/20/16 08:44 Dose: 200 mg Gabapentin (Neurontin) 300 mg PO HS [facility] Last Admin: 11/20/16 21:41 Dose: 300 mg Guaifenesin/Dextromethorphan (Robitussin Dm) 10 ml PO TID PRN PRN Reason: Cough Levofloxacin/Dextrose (Levaquin 750mg) 150 mls @ 100 mls/hr IVPB DAILY [facility] Clindamycin Phosphate 600 mg/ (Sodium Chloride) 104 mls @ 104 mls/hr IVPB Q8 [facility] Last Admin: 11/21/16 01:56 Dose: 104 mls/hr Metoprolol Succinate (Toprol Xl) 50 mg PO DAILY [facility] Last Admin: 11/20/16 08:46 Dose: 50 mg Pantoprazole Sodium (Protonix Ec Tab) 40 mg PO DAILY [facility] Last Admin: 11/20/16 08:45 Dose: 40 mg Tamsulosin HCl (Flomax) 0.8 mg PO DAILY@2100 [facility] Last Admin: 11/20/16 21:42 Dose: 0.8 mg - Labs Labs: 11/21/16 04:30 11/21/16 04:30 PT 12.6 SECONDS (9.6-11.2) H 11/18/16 17:30 INR 1.21 (0.92-1.08) H 11/18/16 17:30 APTT 31.1 SECONDS (23.3-32.5) 11/18/16 17:30
[2016-11-21] MEDS: Pantoprazole 40 mg EC Tab PO SCH (09:09)
[2016-11-21] MEDS: Metoprolol Succinate 50 mg XL Tab PO SCH (09:09)
--- NOTE | 2016-11-21 12:40 | RAD ---
PROCEDURE: Chest radiographs HISTORY: pleural effusion COMPARISON: 11/20/2016 TECHNIQUE: PA and bilateral decubitus views were obtained. FINDINGS: There is a layering pleural effusion on the right. There is persistent right lower lobe pneumonia. The left lung is clear. There is persistent cardiomegaly. Status post CABG. There is stable position of left-sided pacemaker. IMPRESSION: Layering small right pleural effusion. Persistent right lower lobe pneumonia.
[2016-11-22] MEDS: Clindamycin 600 MG in Sodium Chloride 0.9% 100 ML IVPB SCH ×3 (01:00→18:07)
[2016-11-22 06:41] LABS: HEMATOCRIT 28.3 % (35.0-51.0); MEAN CELL VOLUME 90.6 fl (80.0-94.0); MEAN CORPUSCULAR HEMOGLOBIN 30.5 pg (27.0-31.0); MEAN CORPUSCULAR HGB CONC 33.6 g/dL (33.0-37.0); RED CELL DISTRIBUTION WIDTH 18.8 % (11.5-14.5); WHITE BLOOD COUNT 3.8 K/uL (4.8-10.8)
--- NOTE | 2016-11-22 07:08 | CP.PCM.PN ---
Subjective - Date & Time of Evaluation Date of Evaluation: 11/22/16 Time of Evaluation: 07:08 - Subjective Subjective: 81M seen and examined at bedside with attending. Pt reports feeling better, cough is more wet sounding, and says he is having trace amounts of brownish tinge to phlegm. Otherwise, no SOB, chest pain, or palpitations. Objective - Vital Signs/Intake and Output Vital Signs (last 24 hours): Temp Pulse Resp BP Pulse Ox 36.6 C 87 19 149/71 96 11/22/16 04:34 11/22/16 04:34 11/22/16 04:34 11/22/16 04:34 11/22/16 04:34 - Medications Medications: Current Medications Acetaminophen (Tylenol 325mg Tab) 650 mg PO Q4 PRN PRN Reason: Fever >100.4 F Last Admin: 11/21/16 04:08 Dose: 650 mg Albuterol/Ipratropium (Duoneb 3 Mg/0.5 Mg (3 Ml) Ud) 3 ml INH RQ6 PRN PRN Reason: Shortness of Breath Last Admin: 11/21/16 02:31 Dose: 3 ml Aspirin (Aspirin Chewable) 81 mg PO DAILY [facility] Last Admin: 11/21/16 09:06 Dose: 81 mg Atorvastatin Calcium (Lipitor) 40 mg PO DAILY@2100 [facility] Last Admin: 11/21/16 20:22 Dose: 40 mg Gabapentin (Neurontin) 200 mg PO DAILY [facility] Last Admin: 11/21/16 09:09 Dose: 200 mg Gabapentin (Neurontin) 300 mg PO HS [facility] Last Admin: 11/21/16 21:22 Dose: 300 mg Guaifenesin/Dextromethorphan (Robitussin Dm) 10 ml PO TID PRN PRN Reason: Cough Levofloxacin/Dextrose (Levaquin 750mg) 150 mls @ 100 mls/hr IVPB DAILY [facility] Last Admin: 11/21/16 09:08 Dose: 100 mls/hr Clindamycin Phosphate 600 mg/ (Sodium Chloride) 104 mls @ 104 mls/hr IVPB Q8 [facility] Last Admin: 11/21/16 16:17 Dose: 104 mls/hr Metoprolol Succinate (Toprol Xl) 50 mg PO DAILY [facility] Last Admin: 11/21/16 09:09 Dose: 50 mg Pantoprazole Sodium (Protonix Ec Tab) 40 mg PO DAILY [facility] Last Admin: 11/21/16 09:09 Dose: 40 mg Tamsulosin HCl (Flomax) 0.8 mg PO DAILY@2100 [facility] Last Admin: 11/21/16 20:22 Dose: 0.8 mg - Labs Labs: 11/21/16 04:30 11/21/16 04:30 PT 12.6 SECONDS (9.6-11.2) H 11/18/16 17:30 INR 1.21 (0.92-1.08) H 11/18/16 17:30 APTT 31.1 SECONDS (23.3-32.5) 11/18/16 17:30 - Constitutional Appears: Well, Non-toxic, No Acute Distress - Head Exam Head Exam: ATRAUMATIC, NORMAL INSPECTION - Eye Exam Eye Exam: EOMI, Normal appearance - ENT Exam ENT Exam: Mucous Membranes Moist, Normal Exam - Neck Exam Neck Exam: Full ROM, Normal Inspection - Respiratory Exam Respiratory Exam: Decreased Breath Sounds (Right base), Rhonchi (scattered R>L) , Wheezes (much improved), NORMAL BREATHING PATTERN - Cardiovascular Exam Cardiovascular Exam: REGULAR RHYTHM. absent: JVD - GI/Abdominal Exam GI & Abdominal Exam: Soft, Normal Bowel Sounds. absent: Tenderness - Extremities Exam Extremities Exam: Full ROM, Normal Capillary Refill, Normal Inspection. absent : Pedal Edema - Neurological Exam Neurological Exam: Alert, Awake, Oriented x3 - Psychiatric Exam Psychiatric exam: Normal Affect, Normal Mood - Skin Skin Exam: Normal Color, Warm Assessment and Plan (1) Pneumonia Assessment & Plan: RLL bacterial pneumonia, afebrile for 24hrs on current abx regimen. Decubitus X -ray showed layering, Dr Soliz recommending thoracentesis for associated effusion. Spoke with Dr Holloway who will evaluate volume and make decision tomorrow, requests HOLD on aspirin. - f/u Pulmonary Consult (Dr Soliz) recs: Thoracentesis - c/w Levoquin/Clindamycin - Incentive spiromtery, Q2H - c/w GuaifensinJoellen - OOB to chair, BRP w/assistance - Physical Therapy Status: Acute (2) DVT prophylaxis Assessment & Plan: Not a candidate for Lovenox or Heparin. SCDs, b/l lower extremities, continuous. Status: Acute (3) MDS (myelodysplastic syndrome) Assessment & Plan: Chronic, H/H much improved after 2U PRBC, although leukocytes decreased further. - Heme/Onc Consult (Dr Jose Daniel Ocampo): case d/w Dr Cuevas ?bone marrow after this admission if no improvement - Trend labs Status: Chronic (4) Hypertension Assessment & Plan: Well-controlled - c/w home medications Status: Chronic (5) BPH (benign prostatic hypertrophy) Assessment & Plan: Well-controlled - c/w home medications Status: Chronic (6) Dehydration Status: Resolved
[2016-11-22 07:36] LABS: POTASSIUM 4.5 MMOL/L (3.6-5.0)
[2016-11-22 07:38] LABS: ALB/GLOB RATIO 1.4 (1.0-2.1); BILIRUBIN,TOTAL 2.3 mg/dl (0.2-1.3); CALCIUM 8.7 mg/dL (8.4-10.2); TOTAL PROTEIN 5.8 G/DL (6.3-8.2)
--- NOTE | 2016-11-22 08:19 | CP.PCM.PN ---
Subjective - Date & Time of Evaluation Date of Evaluation: 11/22/16 Time of Evaluation: 08:19 - Subjective Subjective: Pt is afebrile, but the chest xray still shows persistent pneumonia and pleural fluid. which is layered. He was transfused yesterday, and the CBC today shows WBC 3.8, platelets 71, hgb 9.5 and hct 28.3. Spoke with his oncologist Dr Cuevas who claims that this is the lowest his HGB has been and that th eplatelets which were above 100k are again low. He feels this could all be secondary to the pneumonia and antibiotics but if it persists, he will do a bone marrow to see if there is progression of the disease. Objective - Vital Signs/Intake and Output Vital Signs (last 24 hours): Temp Pulse Resp BP Pulse Ox 98.9 F 87 18 148/73 96 11/22/16 08:00 11/22/16 08:00 11/22/16 08:00 11/22/16 08:00 11/22/16 08:00 - Medications Medications: Current Medications Acetaminophen (Tylenol 325mg Tab) 650 mg PO Q4 PRN PRN Reason: Fever >100.4 F Last Admin: 11/21/16 04:08 Dose: 650 mg Albuterol/Ipratropium (Duoneb 3 Mg/0.5 Mg (3 Ml) Ud) 3 ml INH RQ6 PRN PRN Reason: Shortness of Breath Last Admin: 11/21/16 02:31 Dose: 3 ml Aspirin (Aspirin Chewable) 81 mg PO DAILY [facility] Last Admin: 11/21/16 09:06 Dose: 81 mg Atorvastatin Calcium (Lipitor) 40 mg PO DAILY@2100 [facility] Last Admin: 11/21/16 20:22 Dose: 40 mg Gabapentin (Neurontin) 200 mg PO DAILY [facility] Last Admin: 11/21/16 09:09 Dose: 200 mg Gabapentin (Neurontin) 300 mg PO HS [facility] Last Admin: 11/21/16 21:22 Dose: 300 mg Guaifenesin/Dextromethorphan (Robitussin Dm) 10 ml PO TID PRN PRN Reason: Cough Levofloxacin/Dextrose (Levaquin 750mg) 150 mls @ 100 mls/hr IVPB DAILY [facility] Last Admin: 11/21/16 09:08 Dose: 100 mls/hr Clindamycin Phosphate 600 mg/ (Sodium Chloride) 104 mls @ 104 mls/hr IVPB Q8 [facility] Last Admin: 11/22/16 01:00 Dose: 104 mls/hr Metoprolol Succinate (Toprol Xl) 50 mg PO DAILY [facility] Last Admin: 11/21/16 09:09 Dose: 50 mg Pantoprazole Sodium (Protonix Ec Tab) 40 mg PO DAILY [facility] Last Admin: 11/21/16 09:09 Dose: 40 mg Tamsulosin HCl (Flomax) 0.8 mg PO DAILY@2100 [facility] Last Admin: 11/21/16 20:22 Dose: 0.8 mg - Labs Labs: 11/22/16 04:55 11/22/16 04:55 PT 12.6 SECONDS (9.6-11.2) H 11/18/16 17:30 INR 1.21 (0.92-1.08) H 11/18/16 17:30 APTT 31.1 SECONDS (23.3-32.5) 11/18/16 17:30
[2016-11-22] MEDS: Pantoprazole 40 mg EC Tab PO SCH (09:16)
[2016-11-22] MEDS: Metoprolol Succinate 50 mg XL Tab PO SCH (09:16)
--- NOTE | 2016-11-22 09:51 | CP.PCM.PN ---
Subjective - Date & Time of Evaluation Date of Evaluation: 11/21/16 Time of Evaluation: 09:00 - Subjective Subjective: Antibiotics were changed yesterday for afternoon doses. Had temp spike overnight and early AM today. Clinically and laboratory unchanged. Monitor overnight on same regimen. Objective - Vital Signs/Intake and Output Vital Signs (last 24 hours): Temp Pulse Resp BP Pulse Ox 98.9 F 87 18 148/83 96 11/22/16 08:00 11/22/16 09:16 11/22/16 08:00 11/22/16 09:16 11/22/16 08:00 Intake and Output: 11/21/16 11/22/16 23:59 11:59 Intake Total 750 Balance 750 - Medications Medications: Current Medications Acetaminophen (Tylenol 325mg Tab) 650 mg PO Q4 PRN PRN Reason: Fever >100.4 F Last Admin: 11/21/16 04:08 Dose: 650 mg Albuterol/Ipratropium (Duoneb 3 Mg/0.5 Mg (3 Ml) Ud) 3 ml INH RQ6 PRN PRN Reason: Shortness of Breath Last Admin: 11/21/16 02:31 Dose: 3 ml Aspirin (Aspirin Chewable) 81 mg PO DAILY [facility] Last Admin: 11/22/16 09:16 Dose: 81 mg Atorvastatin Calcium (Lipitor) 40 mg PO DAILY@2100 [facility] Last Admin: 11/21/16 20:22 Dose: 40 mg Gabapentin (Neurontin) 200 mg PO DAILY [facility] Last Admin: 11/22/16 09:16 Dose: 200 mg Gabapentin (Neurontin) 300 mg PO HS [facility] Last Admin: 11/21/16 21:22 Dose: 300 mg Guaifenesin/Dextromethorphan (Robitussin Dm) 10 ml PO TID PRN PRN Reason: Cough Levofloxacin/Dextrose (Levaquin 750mg) 150 mls @ 100 mls/hr IVPB DAILY [facility] Last Admin: 11/22/16 09:18 Dose: 100 mls/hr Clindamycin Phosphate 600 mg/ (Sodium Chloride) 104 mls @ 104 mls/hr IVPB Q8 [facility] Last Admin: 11/22/16 09:17 Dose: 104 mls/hr Metoprolol Succinate (Toprol Xl) 50 mg PO DAILY [facility] Last Admin: 11/22/16 09:16 Dose: 50 mg Pantoprazole Sodium (Protonix Ec Tab) 40 mg PO DAILY [facility] Last Admin: 11/22/16 09:16 Dose: 40 mg Tamsulosin HCl (Flomax) 0.8 mg PO DAILY@2100 [facility] Last Admin: 11/21/16 20:22 Dose: 0.8 mg - Labs Labs: 11/22/16 04:55 11/22/16 04:55 PT 12.6 SECONDS (9.6-11.2) H 11/18/16 17:30 INR 1.21 (0.92-1.08) H 11/18/16 17:30 APTT 31.1 SECONDS (23.3-32.5) 11/18/16 17:30 Assessment and Plan (1) Pneumonia Status: Acute (2) MDS (myelodysplastic syndrome) Status: Chronic (3) Thrombocytopenia Status: Chronic
--- NOTE | 2016-11-22 10:29 | PQF GENQUE ---
This form is a permanent part of the medical record 11/22/16 , ER MD has documented the following information with no mention of this diagnosis in your documentation. Please indicate in your next progress note and /or discharge summary your agreement with storage management consultant or provide clarification that this diagnosis is not a current condition. Diagnosis: ER MD: Lactic acid level 0.6. Patient meets criteria for sepsis with tachycardia and fever but not severe sepsis. Documented by: Indu Valdivia Location: ER Patient with MDS who is receiving chemotherapy is admitted with fever, cough and decreased appetite. Temp 101.6, HR 99. WBC 7 with a L shift and 4% BANDS. CXR: Opacity RLL. Blood cultures no growth after 3 days. Treated with IVAB for pneumonia. Clarification of your documentation is requested to better reflect the severity of illness and intensity of treatment of your patient. PHYSICIAN'S RESPONSE: Based on your medical judgment of the clinical indicators outlined above please clarify the following: [] Practitioner response [] If unable to determine, please check the box, sign and date. Present On Admission (POA) Indicator: [] Present at the time of admission [] Not present at the time of admission [] Clinically Undetermined In responding to this query, please exercise your independent professional judgment. The fact that a question is asked does not imply that any particular answer is desired or expected. Thank you for your clarification on this documentation. If you have any questions please [phone] * Thank you, Sandi Calvert RN [facility]
--- NOTE | 2016-11-22 10:30 | CP.PCM.PN ---
Subjective - Date & Time of Evaluation Date of Evaluation: 11/22/16 Time of Evaluation: 10:26 - Subjective Subjective: Has remained afebrile for the last 24 hrs. Lateral decubitus CXR shows moderate amount free flowing pleural fluid on the right. Patient is having some productive cough with 'brownish' sputum being expectorated. He does claim to feel rather well this morning. Dullness is appreciated on percussion of the right base posteriorly. No bronchial breathing or egophony. Few rhonchi and medium rales. Spoke with patient regarding possible thoracentesis. Called IR and placed request for tap (informed of thrombocytopenia). Requested specimens entered into the EMR. Objective - Vital Signs/Intake and Output Vital Signs (last 24 hours): Temp Pulse Resp BP Pulse Ox 98.9 F 87 18 148/83 96 11/22/16 08:00 11/22/16 09:16 11/22/16 08:00 11/22/16 09:16 11/22/16 08:00 Intake and Output: 11/21/16 11/22/16 23:59 11:59 Intake Total 750 Balance 750 - Medications Medications: Current Medications Acetaminophen (Tylenol 325mg Tab) 650 mg PO Q4 PRN PRN Reason: Fever >100.4 F Last Admin: 11/21/16 04:08 Dose: 650 mg Albuterol/Ipratropium (Duoneb 3 Mg/0.5 Mg (3 Ml) Ud) 3 ml INH RQ6 PRN PRN Reason: Shortness of Breath Last Admin: 11/21/16 02:31 Dose: 3 ml Aspirin (Aspirin Chewable) 81 mg PO DAILY [facility] Last Admin: 11/22/16 09:16 Dose: 81 mg Atorvastatin Calcium (Lipitor) 40 mg PO DAILY@2100 [facility] Last Admin: 11/21/16 20:22 Dose: 40 mg Gabapentin (Neurontin) 200 mg PO DAILY [facility] Last Admin: 11/22/16 09:16 Dose: 200 mg Gabapentin (Neurontin) 300 mg PO HS [facility] Last Admin: 11/21/16 21:22 Dose: 300 mg Guaifenesin/Dextromethorphan (Robitussin Dm) 10 ml PO TID PRN PRN Reason: Cough Levofloxacin/Dextrose (Levaquin 750mg) 150 mls @ 100 mls/hr IVPB DAILY [facility] Last Admin: 11/22/16 09:18 Dose: 100 mls/hr Clindamycin Phosphate 600 mg/ (Sodium Chloride) 104 mls @ 104 mls/hr IVPB Q8 [facility] Last Admin: 11/22/16 09:17 Dose: 104 mls/hr Metoprolol Succinate (Toprol Xl) 50 mg PO DAILY [facility] Last Admin: 11/22/16 09:16 Dose: 50 mg Pantoprazole Sodium (Protonix Ec Tab) 40 mg PO DAILY [facility] Last Admin: 11/22/16 09:16 Dose: 40 mg Tamsulosin HCl (Flomax) 0.8 mg PO DAILY@2100 [facility] Last Admin: 11/21/16 20:22 Dose: 0.8 mg - Labs Labs: 11/22/16 04:55 11/22/16 04:55 PT 12.6 SECONDS (9.6-11.2) H 11/18/16 17:30 INR 1.21 (0.92-1.08) H 11/18/16 17:30 APTT 31.1 SECONDS (23.3-32.5) 11/18/16 17:30 Assessment and Plan (1) Pneumonia Status: Acute (2) MDS (myelodysplastic syndrome) Status: Chronic (3) Thrombocytopenia Status: Chronic
[2016-11-23] MEDS: Clindamycin 600 MG in Sodium Chloride 0.9% 100 ML IVPB SCH ×2 (01:59→08:46)
[2016-11-23 07:26] LABS: ALB/GLOB RATIO 1.3 (1.0-2.1); ALKALINE PHOSPHATASE 74 U/L (38-126); ALT/SGPT 33 U/L (21-72); AST/SGOT 33 U/L (17-59); BILIRUBIN,TOTAL 2.1 mg/dl (0.2-1.3); BLOOD UREA NITROGEN 26 mg/dl (9-20); CALCIUM 8.8 mg/dL (8.4-10.2); CARBON DIOXIDE 26 mmol/L (22-30); CHLORIDE 104 mmol/L (98-107); GFR AFRICAN-AMERICAN > 60; GLUCOSE,RANDOM 96 mg/dL (75-110); POTASSIUM 4.3 MMOL/L (3.6-5.0); SODIUM 140 mmol/l (132-148); TOTAL PROTEIN 5.7 G/DL (6.3-8.2)
[2016-11-23 08:27] LABS: HEMATOCRIT 29.1 % (35.0-51.0); MEAN CELL VOLUME 89.8 fl (80.0-94.0); MEAN CORPUSCULAR HEMOGLOBIN 30.6 pg (27.0-31.0); RED CELL DISTRIBUTION WIDTH 18.3 % (11.5-14.5)
[2016-11-23 08:40] LABS: WHITE BLOOD COUNT 2.7 K/uL (4.8-10.8)
[2016-11-23] MEDS: Metoprolol Succinate 50 mg XL Tab PO SCH (08:48)
[2016-11-23] MEDS: Pantoprazole 40 mg EC Tab PO SCH (08:48)
--- NOTE | 2016-11-23 08:49 | CP.PCM.PN ---
Subjective - Date & Time of Evaluation Date of Evaluation: 11/23/16 Time of Evaluation: 07:00 - Subjective Subjective: 81M seen and examined at bedside with attending. Pt feeling "ok" denies SOB, chest pain, but complaint of poor appetite. He had a BM yesterday and continues to work on incentive spirometer. Objective - Vital Signs/Intake and Output Vital Signs (last 24 hours): Temp Pulse Resp BP Pulse Ox 36.8 C 67 20 145/71 97 11/23/16 08:26 11/23/16 08:48 11/23/16 08:26 11/23/16 08:48 11/23/16 08:26 - Medications Medications: Current Medications Acetaminophen (Tylenol 325mg Tab) 650 mg PO Q4 PRN PRN Reason: Fever >100.4 F Last Admin: 11/21/16 04:08 Dose: 650 mg Albuterol/Ipratropium (Duoneb 3 Mg/0.5 Mg (3 Ml) Ud) 3 ml INH RQ6 PRN PRN Reason: Shortness of Breath Last Admin: 11/21/16 02:31 Dose: 3 ml Aspirin (Aspirin Chewable) 81 mg PO DAILY [facility] Last Admin: 11/22/16 09:16 Dose: 81 mg Atorvastatin Calcium (Lipitor) 40 mg PO DAILY@2100 [facility] Last Admin: 11/22/16 21:01 Dose: 40 mg Gabapentin (Neurontin) 200 mg PO DAILY [facility] Last Admin: 11/23/16 08:48 Dose: 200 mg Gabapentin (Neurontin) 300 mg PO HS [facility] Last Admin: 11/22/16 21:01 Dose: 300 mg Guaifenesin/Dextromethorphan (Robitussin Dm) 10 ml PO TID PRN PRN Reason: Cough Levofloxacin/Dextrose (Levaquin 750mg) 150 mls @ 100 mls/hr IVPB DAILY [facility] Last Admin: 11/23/16 08:47 Dose: 100 mls/hr Clindamycin Phosphate 600 mg/ (Sodium Chloride) 104 mls @ 104 mls/hr IVPB Q8 [facility] Last Admin: 11/23/16 08:46 Dose: 104 mls/hr Metoprolol Succinate (Toprol Xl) 50 mg PO DAILY [facility] Last Admin: 11/23/16 08:48 Dose: 50 mg Pantoprazole Sodium (Protonix Ec Tab) 40 mg PO DAILY [facility] Last Admin: 04/07/17 08:48 Dose: 40 mg Tamsulosin HCl (Flomax) 0.8 mg PO DAILY@2100 [facility] Last Admin: 11/22/16 21:01 Dose: 0.8 mg - Labs Labs: 11/23/16 05:45 11/23/16 05:45 PT 12.6 SECONDS (9.6-11.2) H 11/18/16 17:30 INR 1.21 (0.92-1.08) H 11/18/16 17:30 APTT 31.1 SECONDS (23.3-32.5) 11/18/16 17:30 - Constitutional Appears: Non-toxic, No Acute Distress - Head Exam Head Exam: ATRAUMATIC, NORMAL INSPECTION - Eye Exam Eye Exam: EOMI, Normal appearance - ENT Exam ENT Exam: Mucous Membranes Moist (but lips dry), Normal Exam - Neck Exam Neck Exam: Full ROM, Normal Inspection - Respiratory Exam Respiratory Exam: Decreased Breath Sounds (Right base, but some improvement), Wheezes (improving), NORMAL BREATHING PATTERN. absent: Rales - Cardiovascular Exam Cardiovascular Exam: REGULAR RHYTHM. absent: JVD - GI/Abdominal Exam GI & Abdominal Exam: Soft, Normal Bowel Sounds. absent: Tenderness - Neurological Exam Neurological Exam: Alert, Awake, Oriented x3 - Psychiatric Exam Psychiatric exam: Normal Affect, Normal Mood - Skin Skin Exam: Dry, Warm Assessment and Plan (1) Pneumonia Assessment & Plan: RLL bacterial pneumonia, continues afebrile but more leukopenic, after d/w Heme /Onc and Pulm decision made to d/c CLindamycin. CT evaluation for RIGHT pulm effusion negative so no thoracentesis. Restart aspirin. - f/u Pulmonary Consult (Dr Soliz) recs: d/c Clindamycin, december d/c 11/24 on Levaquin IF no worsening of leukopenia - c/w IV Levoquin - Incentive spiromtery, Q2H - c/w GuaifensinJoellen - OOB to chair, BRP w/assistance - Physical Therapy Status: Acute (2) DVT prophylaxis Assessment & Plan: Not a candidate for Lovenox or Heparin. SCDs, b/l lower extremities, continuous. Status: Acute (3) MDS (myelodysplastic syndrome) Assessment & Plan: Chronic, H/H stable after 2U PRBC, but more leukopenic and suspect 2/2 Clindamycin which was d/c'd today. - Heme/Onc Consult (Dr Jose Daniel Ocampo): case d/w Dr Cuevas ?bone marrow after this admission if no improvement - Repeat labs - NO discharge if worsening leukopenia Status: Chronic (4) Hypertension Assessment & Plan: Well-controlled - c/w home medications Status: Chronic (5) BPH (benign prostatic hypertrophy) Assessment & Plan: Well-controlled - c/w home medications Status: Chronic
--- NOTE | 2016-11-23 10:51 | CP.PCM.PN ---
Subjective - Date & Time of Evaluation Date of Evaluation: 11/23/16 Time of Evaluation: 10:46 - Subjective Subjective: Thoracentesis not done yesterday. Patient is feeling well. Has remained afebrile for 48hrs. Have requested CT chest be done this morning to better evaluate the amount of effusion. If significant pleural fluid is present he will need platelet transfusion prior to thoracentesis. If effusion is not significant we will simply continue antibiotic therapy. Clindamycin has been stopped because of worsened leukopenia, and f/u CBC requested for the AM. Levofloxacin will be continued, and can be switched to PO by tomorrow if tap is not needed. Objective - Vital Signs/Intake and Output Vital Signs (last 24 hours): Temp Pulse Resp BP Pulse Ox 98.3 F 67 20 145/71 97 11/23/16 08:26 11/23/16 08:48 11/23/16 08:26 11/23/16 08:48 11/23/16 08:26 Intake and Output: 11/22/16 11/23/16 23:59 11:59 Intake Total 200 Output Total 200 Balance 0 - Medications Medications: Current Medications Acetaminophen (Tylenol 325mg Tab) 650 mg PO Q4 PRN PRN Reason: Fever >100.4 F Last Admin: 11/21/16 04:08 Dose: 650 mg Albuterol/Ipratropium (Duoneb 3 Mg/0.5 Mg (3 Ml) Ud) 3 ml INH RQ6 PRN PRN Reason: Shortness of Breath Last Admin: 11/21/16 02:31 Dose: 3 ml Aspirin (Aspirin Chewable) 81 mg PO DAILY [facility] Last Admin: 11/22/16 09:16 Dose: 81 mg Atorvastatin Calcium (Lipitor) 40 mg PO DAILY@2100 [facility] Last Admin: 11/22/16 21:01 Dose: 40 mg Gabapentin (Neurontin) 200 mg PO DAILY [facility] Last Admin: 11/23/16 08:48 Dose: 200 mg Gabapentin (Neurontin) 300 mg PO HS [facility] Last Admin: 11/22/16 21:01 Dose: 300 mg Guaifenesin/Dextromethorphan (Robitussin Dm) 10 ml PO TID PRN PRN Reason: Cough Levofloxacin/Dextrose (Levaquin 750mg) 150 mls @ 100 mls/hr IVPB DAILY [facility] Last Admin: 11/23/16 08:47 Dose: 100 mls/hr Metoprolol Succinate (Toprol Xl) 50 mg PO DAILY [facility] Last Admin: 11/23/16 08:48 Dose: 50 mg Pantoprazole Sodium (Protonix Ec Tab) 40 mg PO DAILY [facility] Last Admin: 11/23/16 08:48 Dose: 40 mg Tamsulosin HCl (Flomax) 0.8 mg PO DAILY@2100 [facility] Last Admin: 11/22/16 21:01 Dose: 0.8 mg - Labs Labs: 11/23/16 05:45 11/23/16 05:45 PT 12.6 SECONDS (9.6-11.2) H 11/18/16 17:30 INR 1.21 (0.92-1.08) H 11/18/16 17:30 APTT 31.1 SECONDS (23.3-32.5) 11/18/16 17:30 Assessment and Plan (1) Pneumonia Status: Acute (2) Pleural effusion associated with pulmonary infection Status: Acute (3) MDS (myelodysplastic syndrome) Status: Chronic (4) Thrombocytopenia Status: Chronic
--- NOTE | 2016-11-23 11:03 | CP.PCM.PN ---
Subjective - Date & Time of Evaluation Date of Evaluation: 11/23/16 Time of Evaluation: 10:58 - Subjective Subjective: Pt has been afebrile for the last 2 days. His CBC today showed a WBC of 2.3, Hgb of 9.9gms, and platelets are 83K. The CXR showed pleural fluid on lateral decubitus film. It is not certain if this is a transudate or if it is an empyema which the pt has had in the past. A ct scan is being done, and if pt is going to need a thoracentesis, he will need a platelet transfusion Objective - Vital Signs/Intake and Output Vital Signs (last 24 hours): Temp Pulse Resp BP Pulse Ox 98.3 F 67 20 145/71 97 11/23/16 08:26 11/23/16 08:48 11/23/16 08:26 11/23/16 08:48 11/23/16 08:26 Intake and Output: 11/23/16 11/23/16 06:59 18:59 Intake Total 200 Output Total 200 Balance 0 - Medications Medications: Current Medications Acetaminophen (Tylenol 325mg Tab) 650 mg PO Q4 PRN PRN Reason: Fever >100.4 F Last Admin: 11/21/16 04:08 Dose: 650 mg Albuterol/Ipratropium (Duoneb 3 Mg/0.5 Mg (3 Ml) Ud) 3 ml INH RQ6 PRN PRN Reason: Shortness of Breath Last Admin: 11/21/16 02:31 Dose: 3 ml Aspirin (Aspirin Chewable) 81 mg PO DAILY [facility] Last Admin: 11/22/16 09:16 Dose: 81 mg Atorvastatin Calcium (Lipitor) 40 mg PO DAILY@2100 [facility] Last Admin: 11/22/16 21:01 Dose: 40 mg Gabapentin (Neurontin) 200 mg PO DAILY [facility] Last Admin: 11/23/16 08:48 Dose: 200 mg Gabapentin (Neurontin) 300 mg PO HS [facility] Last Admin: 11/22/16 21:01 Dose: 300 mg Guaifenesin/Dextromethorphan (Robitussin Dm) 10 ml PO TID PRN PRN Reason: Cough Levofloxacin/Dextrose (Levaquin 750mg) 150 mls @ 100 mls/hr IVPB DAILY [facility] Last Admin: 11/23/16 08:47 Dose: 100 mls/hr Metoprolol Succinate (Toprol Xl) 50 mg PO DAILY [facility] Last Admin: 11/23/16 08:48 Dose: 50 mg Pantoprazole Sodium (Protonix Ec Tab) 40 mg PO DAILY [facility] Last Admin: 11/23/16 08:48 Dose: 40 mg Tamsulosin HCl (Flomax) 0.8 mg PO DAILY@2100 [facility] Last Admin: 11/22/16 21:01 Dose: 0.8 mg - Labs Labs: 11/23/16 05:45 11/23/16 05:45 PT 12.6 SECONDS (9.6-11.2) H 11/18/16 17:30 INR 1.21 (0.92-1.08) H 11/18/16 17:30 APTT 31.1 SECONDS (23.3-32.5) 11/18/16 17:30
--- NOTE | 2016-11-23 12:32 | PCM.IRP ---
History of Present Illness - History of Present Illness History of Present Illness: CT chest reviewed. Mr. Kam brought to IR for thoracentesis. Ultrasound of chest show no significant fluid. Thoracentesis was not performed because of lack of fluid. Objective - Vital Signs/Intake and Output Vital Signs (last 24 hours): Vital Signs - 24 hr 11/22/16 11/22/16 11/23/16 16:00 19:20 00:31 Temperature 97.5 F L 97.8 F 98.8 F Pulse Rate 74 74 81 Respiratory 20 18 20 Rate Blood Pressure 126/64 146/67 153/74 H O2 Sat by Pulse 100 99 97 Oximetry 11/23/16 11/23/16 11/23/16 05:00 08:26 08:41 Temperature 97.8 F 98.3 F Pulse Rate 75 67 67 Respiratory 18 20 Rate Blood Pressure 143/70 145/71 O2 Sat by Pulse 99 97 Oximetry 11/23/16 11/23/16 08:48 12:11 Temperature 98.3 F Pulse Rate 67 76 Respiratory 20 Rate Blood Pressure 145/71 144/72 O2 Sat by Pulse 98 Oximetry Intake and Output (last 12 hours): Intake & Output 11/22/16 11/23/16 11/23/16 18:59 06:59 18:59 Intake Total 200 Output Total 200 Balance 0 Intake: Intake, Piggyback 200 Output: Urine 200 Urine, Voided 200 Other: # Voids Urine, Voided 1 - Medications Medications: Current Medications Acetaminophen (Tylenol 325mg Tab) 650 mg PO Q4 PRN PRN Reason: Fever >100.4 F Last Admin: 11/21/16 04:08 Dose: 650 mg Albuterol/Ipratropium (Duoneb 3 Mg/0.5 Mg (3 Ml) Ud) 3 ml INH RQ6 PRN PRN Reason: Shortness of Breath Last Admin: 11/21/16 02:31 Dose: 3 ml Aspirin (Aspirin Chewable) 81 mg PO DAILY [facility] Last Admin: 11/22/16 09:16 Dose: 81 mg Atorvastatin Calcium (Lipitor) 40 mg PO DAILY@2100 [facility] Last Admin: 11/22/16 21:01 Dose: 40 mg Gabapentin (Neurontin) 200 mg PO DAILY [facility] Last Admin: 11/23/16 08:48 Dose: 200 mg Gabapentin (Neurontin) 300 mg PO HS [facility] Last Admin: 11/22/16 21:01 Dose: 300 mg Guaifenesin/Dextromethorphan (Robitussin Dm) 10 ml PO TID PRN PRN Reason: Cough Levofloxacin/Dextrose (Levaquin 750mg) 150 mls @ 100 mls/hr IVPB DAILY [facility] Last Admin: 11/23/16 08:47 Dose: 100 mls/hr Metoprolol Succinate (Toprol Xl) 50 mg PO DAILY [facility] Last Admin: 11/23/16 08:48 Dose: 50 mg Pantoprazole Sodium (Protonix Ec Tab) 40 mg PO DAILY [facility] Last Admin: 11/23/16 08:48 Dose: 40 mg Tamsulosin HCl (Flomax) 0.8 mg PO DAILY@2100 [facility] Last Admin: 11/22/16 21:01 Dose: 0.8 mg - Labs Labs (last 24 hours): Laboratory Results - last 24 hr 11/20/16 11/23/16 10:18 05:45 WBC 2.7 L RBC 3.25 L Hgb 9.9 L Hct 29.1 L MCV 89.8 MCH 30.6 MCHC 34.0 RDW 18.3 H Plt Count 83 L Sodium 140 Potassium 4.3 Chloride 104 Carbon Dioxide 26 Anion Gap 15 BUN 26 H Creatinine 1.2 Est GFR ( Amer) > 60 Est GFR (Non-Af Amer) 58 Random Glucose 96 Calcium 8.8 Total Bilirubin 2.1 H AST 33 ALT 33 Alkaline Phosphatase 74 Total Protein 5.7 L Albumin 3.2 L Globulin 2.5 Albumin/Globulin Ratio 1.3 Mycoplasma pneumon IgG <=0.90
--- NOTE | 2016-11-23 13:55 | CT ---
PROCEDURE: CT Chest without contrast HISTORY: Pleural effusion COMPARISON: Chest radiographs, the most recent from 11/21/2016 TECHNIQUE: Contiguous axial images were obtained through the chest without intravenous contrast enhancement. Sagittal and coronal reconstructions were performed. Radiation dose (DLP): 746.74 mGy-cm. This CT exam was performed using one or more of the following dose reduction techniques: Automated exposure control, adjustment of the mA and/or kV according to patient size, and/or use of iterative reconstruction technique. FINDINGS: LUNGS: There are tree in bud opacities in the lateral segment of the right middle lobe and both lower lobes. There is also subsegmental atelectasis/scarring in the lingula and both lower lobes. There is probable fibrosis and pleural thickening in the superolateral aspect of the right upper lobe. There is focal ground-glass attenuation in the right upper lobe more inferiorly (series 3, image 43, 44 and 45). There are no endobronchial lesions. 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 There are atherosclerotic calcifications in the aorta and coronary arteries. There is mild cardiomegaly and small pericardial effusion. There are subcentimeter mediastinal lymph nodes, likely reactive in etiology. PLEURA: There is a moderate right and small left pleural effusion. There is also fluid in the right major fissure. No pneumothorax. BONES: No fracture. No destructive lesion. There is diffuse bone demineralization and multilevel degenerative changes in the spine. UPPER ABDOMEN: The right adrenal gland is normal. An 11 mm low-attenuation nodule in the left adrenal gland likely represent is an adenoma. There is a 4.4 cm simple cyst in the upper pole of the right kidney. OTHER FINDINGS: There is a 9 mm low-attenuation nodule in the right thyroid lobe. IMPRESSION: 1. Moderate right and small left pleural effusion and fluid in the right major fissure. 2. Suspect multifocal bronchopneumonia in the right middle lobe and both lower lobes, aspiration pneumonia is also a consideration. 3. Mild cardiomegaly and small pericardial effusion. 4. Focal ground-glass attenuation in the right upper lobe may represent nonspecific infection/inflammation. Follow-up CT scan in 3 months interval is recommended to assess stability/resolution. 5. Right thyroid lobe nodule. If not already performed, a dedicated thyroid ultrasound on a nonemergent basis is recommended for complete evaluation of the thyroid gland gland.
--- NOTE | 2016-11-23 14:56 | US ---
PROCEDURE: Limited ultrasound of right chest performed for purposes of thoracentesis HISTORY: COMPARISON: CT scan 11/23/2016 TECHNIQUE: Limited sonographic evaluation of the chest performed with curvilinear probe. FINDINGS: There is no significant pleural fluid identified. IMPRESSION: Limited ultrasound showed no significant pleural effusion. Thoracentesis not performed.
[2016-11-23 21:53] VITALS: RESP 18
[2016-11-24 07:57] LABS: BLOOD UREA NITROGEN 23 mg/dl (9-20); CALCIUM 8.9 mg/dL (8.4-10.2); CARBON DIOXIDE 28 mmol/L (22-30); CHLORIDE 103 mmol/L (98-107); GFR AFRICAN-AMERICAN > 60; GLUCOSE,RANDOM 96 mg/dL (75-110); POTASSIUM 4.2 MMOL/L (3.6-5.0); SODIUM 142 mmol/l (132-148)
[2016-11-24 08:04] VITALS: BP 120/58; TEMP 97.7; O2SAT 97
[2016-11-24 08:16] LABS: BASO % 0.3 % (0.0-2.0); EOS # 0.1 K/uL (0.0-0.7); EOS % 3.9 % (0.0-4.0); HEMATOCRIT 30.3 % (35.0-51.0); LYMPH # 0.5 K/uL (1.0-4.3); LYMPH % 19.3 % (20.0-40.0); MEAN CELL VOLUME 89.7 fl (80.0-94.0); MEAN CORPUSCULAR HEMOGLOBIN 30.4 pg (27.0-31.0); MEAN CORPUSCULAR HGB CONC 33.9 g/dL (33.0-37.0); MONO # 0.4 K/uL (0.0-0.8); MONO % 14.4 % (0.0-10.0); NEUT # 1.7 K/uL (1.8-7.0); NEUT % 62.1 % (50.0-75.0); NRBC % 0.1 % (0.0-0.0); RED CELL DISTRIBUTION WIDTH 19.1 % (11.5-14.5); WHITE BLOOD COUNT 2.7 K/uL (4.8-10.8)
[2016-11-24] MEDS: Pantoprazole 40 mg EC Tab PO SCH (09:29)
[2016-11-24] MEDS: Metoprolol Succinate 50 mg XL Tab PO SCH (09:30)
[2016-11-24 09:31] VITALS: PULSE 97
--- NOTE | 2016-11-24 11:07 | CP.PCM.PN ---
Subjective - Date & Time of Evaluation Date of Evaluation: 11/24/16 Time of Evaluation: 11:04 - Subjective Subjective: Pt is afebrile, in no respiratory distress. The repeat ct scan of the chest did not show enough pleural fluid to do a thoracentesis..His clindamycin was discontinued and since then the platelets are slowly increasing as is the hgb, The WBC are still at 2.7 Pt will be discharged today and follow up at [facility] for continuation of his chemotherapy. Objective - Vital Signs/Intake and Output Vital Signs (last 24 hours): Temp Pulse Resp BP Pulse Ox 97.7 F 97 H 18 120/58 L 97 11/24/16 08:00 11/24/16 09:30 11/24/16 08:00 11/24/16 09:30 11/24/16 08:00 - Medications Medications: Current Medications Acetaminophen (Tylenol 325mg Tab) 650 mg PO Q4 PRN PRN Reason: Fever >100.4 F Last Admin: 11/21/16 04:08 Dose: 650 mg Albuterol/Ipratropium (Duoneb 3 Mg/0.5 Mg (3 Ml) Ud) 3 ml INH RQ6 PRN PRN Reason: Shortness of Breath Last Admin: 11/21/16 02:31 Dose: 3 ml Aspirin (Aspirin Chewable) 81 mg PO DAILY [facility] Last Admin: 11/24/16 09:27 Dose: 81 mg Atorvastatin Calcium (Lipitor) 40 mg PO DAILY@2100 [facility] Last Admin: 11/23/16 21:43 Dose: 40 mg Gabapentin (Neurontin) 200 mg PO DAILY [facility] Last Admin: 11/24/16 09:29 Dose: 200 mg Gabapentin (Neurontin) 300 mg PO HS [facility] Last Admin: 11/23/16 21:44 Dose: 300 mg Guaifenesin/Dextromethorphan (Robitussin Dm) 10 ml PO TID PRN PRN Reason: Cough Levofloxacin/Dextrose (Levaquin 750mg) 150 mls @ 100 mls/hr IVPB DAILY [facility] Last Admin: 11/24/16 09:28 Dose: 100 mls/hr Metoprolol Succinate (Toprol Xl) 50 mg PO DAILY [facility] Last Admin: 11/24/16 09:30 Dose: 50 mg Pantoprazole Sodium (Protonix Ec Tab) 40 mg PO DAILY [facility] Last Admin: 11/24/16 09:29 Dose: 40 mg Tamsulosin HCl (Flomax) 0.8 mg PO DAILY@2100 [facility] Last Admin: 11/23/16 21:43 Dose: 0.8 mg - Labs Labs: 11/24/16 07:00 11/24/16 07:00 PT 12.6 SECONDS (9.6-11.2) H 11/18/16 17:30 INR 1.21 (0.92-1.08) H 11/18/16 17:30 APTT 31.1 SECONDS (23.3-32.5) 11/18/16 17:30
== END 2016-11-24 12:30 | disposition home or self-care (01) | DRG 194 ==
LOC: H.ER 16:49 → H.ERHOLD 18:40 → H.TEL 21:13
PROVIDERS: ADMIT Family Medicine; ATTEND Family Medicine
PROC: 30233N1 Transfusion of Nonautologous Red Blood Cells into Peripheral Vein, Percutaneous Approach (ICD-10-PCS; principal; 2016-11-21)
PROC: BB4BZZZ Ultrasonography of Pleura (ICD-10-PCS; 2016-11-22)
DX: J15.9 Unspecified bacterial pneumonia (principal); J90 Pleural effusion, not elsewhere classified; E86.0 Dehydration; D69.59 Other secondary thrombocytopenia; D46.Z Other myelodysplastic syndromes; I12.9 Hypertensive chronic kidney disease with stage 1 through stage 4 chronic kidney disease, or unspecified chronic kidney disease; E78.5 Hyperlipidemia, unspecified; D64.89 Other specified anemias; N18.9 Chronic kidney disease, unspecified; I25.10 Atherosclerotic heart disease of native coronary artery without angina pectoris; E78.00 Pure hypercholesterolemia, unspecified; N40.0 Benign prostatic hyperplasia without lower urinary tract symptoms; Z79.899 Other long term (current) drug therapy; Z95.1 Presence of aortocoronary bypass graft; Z95.0 Presence of cardiac pacemaker; Z86.73 Personal history of transient ischemic attack (TIA), and cerebral infarction without residual deficits; I25.2 Old myocardial infarction

== ENCOUNTER 2017-06-27 20:40 | Inpatient (IN) | payer MEDICARE, BC ==
[2017-06-27 20:48] VITALS: BMI 28.3
--- NOTE | 2017-06-27 22:06 | ED PDOC ---
HPI: General Adult Time Seen by Provider: 06/27/17 21:00 Chief Complaint (Nursing): Cough, Cold, Congestion Chief Complaint (Provider): Coughing Blood History Per: Patient History/Exam Limitations: no limitations Onset/Duration Of Symptoms: Hrs Additional Complaint(s): Mann Kam is an 82 year old male with a history of hypertension, hyperlipidemia, CAD, CKD, CVA, and myelodysplastic syndrome that presents to the ED because he was coughing up blood earlier today. Patient reports that he is getting treated for his MDS with chemotherapy at [place], the last treatment of which was yesterday. He states that because he has not been responding to his chemotherapy, he received a bone marrow biopsy yesterday, which showed that his platelet count acutely dropped from 100 to 36. He denies any fever, pain, diarrhea, or vomiting, and states that his coughing up of blood has abated. PMD: Stuart Meyer Cardiology: Dr. Ocampo Oncologist: Provider at [place] Past Medical History Reviewed: Historical Data, Nursing Documentation, Vital Signs Vital Signs: Last Vital Signs Temp 97.7 F 06/28/17 01:43 Pulse 87 06/28/17 01:43 Resp 17 06/28/17 01:43 BP 153/65 H 06/28/17 01:43 Pulse Ox 98 06/28/17 01:43 - Medical History PMH: CAD, CVA, Gall Bladder Disease, HTN, Hypercholesterolemia, Hyperlipidemia, Malignancy (MDS cancer), Pneumonia, Chronic Kidney Disease Denies: Diabetes, HIV - Surgical History Surgical History: CABG, Cholecystectomy, Pacemaker (left chest wall) - Family History Family History: States: Unknown Family Hx - Social History Alcohol: Occasional - Home Medications Home Medications: Ambulatory Orders Medication Instructions Recorded Aspirin [Aspirin Chewable] 81 mg PO DAILY 03/07/16 Gabapentin [Neurontin] 200 mg PO DAILY 03/07/16 Gabapentin [Neurontin] 300 mg PO HS 03/07/16 Metoprolol Succinate [Toprol XL] 50 mg PO DAILY 03/07/16 Simvastatin [Zocor] 80 mg PO DAILY 03/07/16 Solifenacin Succinate [Vesicare] 5 mg PO DAILY 03/07/16 Tamsulosin HCl [Flomax] 2 cap PO DAILY 03/07/16 Esomeprazole Magnesium [Nexium 22.3 mg PO DAILY 11/18/16 24Hr] - Allergies Allergies/Adverse Reactions: Allergies Allergy/AdvReac Type Severity Reaction Status Date / Time No Known Allergies Allergy Verified 11/18/16 16:52 Review of Systems Constitutional: Negative for: Fever, Other (denies any pain) Respiratory: Positive for: Hemoptysis Gastrointestinal: Negative for: Vomiting, Diarrhea Physical Exam - Reviewed Nursing Documentation Reviewed: Yes Vital Signs Reviewed: Yes - Physical Exam Appears: Positive for: Non-toxic, No Acute Distress Head Exam: Positive for: ATRAUMATIC, NORMOCEPHALIC Skin: Positive for: Normal Color, Warm Eye Exam: Positive for: Normal appearance, EOMI, PERRL ENT: Positive for: Normal ENT Inspection, Other (Dried blood present on mouth) Cardiovascular/Chest: Positive for: Regular Rate, Rhythm. Negative for: Murmur Respiratory: Positive for: Normal Breath Sounds. Negative for: Wheezing Gastrointestinal/Abdominal: Positive for: Normal Exam, Soft. Negative for: Tenderness Back: Positive for: Normal Inspection. Negative for: L CVA Tenderness, R CVA Tenderness Extremity: Positive for: Normal ROM, Pedal Edema (Chronic swelling in legs bilaterally, 2+ pedal edema) Neurologic/Psych: Positive for: Alert, Oriented. Negative for: Motor/Sensory Deficits - Laboratory Results Result Diagrams: 06/27/17 22:18 06/27/17 22:18 - ECG O2 Sat by Pulse Oximetry: 100 (RA) Pulse Ox Interpretation: Normal Medical Decision Making Medical Decision Making: Time: 22:17 Impression: Hemoptysis Initial Plan: * Labs, r/o thrombocyte leukemia, r/o infection * CBC * PTT * PT * Type and Screen * Reevaluation Time: 23:00. Labs reviewed. Patient is neutropenic and thrombocytopenic. Paged hematology on-call, Dr. Isabell Ocampo. Time: 23:[address] Ocampo, who reviewed patients labs, and requested patient be given 2 units of packed cells and 1 unit of platelets. She will see the patient tomorrow morning. Patient will be admitted inpatient to telemetry under the service of Dr. Morejon, for neutropenia, thrombocytopenia, hemoptysis, and history of myledysplastic disorder. Written consent obtained for transfusion. Scribe Attestation: Documented by Myah Leahy & Donna Costa, acting as a scribe for Elizabeth Zhang MD. Provider Scribe Attestation: All medical record entries made by the Scribe were at my direction and personally dictated by me. I have reviewed the chart and agree that the record accurately reflects my personal performance of the history, physical exam, medical decision making, and the department course for this patient. I have also personally directed, reviewed, and agree with the discharge instructions and disposition. Disposition - Clinical Impression Clinical Impression: Thrombocytopenia, Hemoptysis - Patient ED Disposition Is Patient to be Admitted: No Counseled Patient/Family Regarding: Studies Performed, Diagnosis, Need For Followup - Disposition Disposition: Routine/Home Disposition Time: 22:00 Condition: STABLE
[2017-06-27 22:46] LABS: BASO % 0.6 % (0.0-2.0); EOS % 0.6 % (0.0-4.0); LYMPH # 0.2 K/uL (1.0-4.3); LYMPH % 19.6 % (20.0-40.0); MEAN CELL VOLUME 87.6 fl (80.0-94.0); MEAN CORPUSCULAR HEMOGLOBIN 28.9 pg (27.0-31.0); MEAN CORPUSCULAR HGB CONC 32.9 g/dL (33.0-37.0); MEAN PLATELET VOLUME 10.3 fl (7.2-11.7); MONO # 0.1 K/uL (0.0-0.8); MONO % 11.9 % (0.0-10.0); NEUT # 0.8 K/uL (1.8-7.0); NEUT % 67.3 % (50.0-75.0); NRBC % 1.3 % (0.0-0.0); RED CELL DISTRIBUTION WIDTH 18.3 % (11.5-14.5)
[2017-06-27 22:56] LABS: ALB/GLOB RATIO 1.7 (1.0-2.1); ALKALINE PHOSPHATASE 62 U/L (38-126); ALT/SGPT 40 U/L (21-72); AST/SGOT 24 U/L (17-59); BILIRUBIN,TOTAL 2.4 mg/dl (0.2-1.3); BLOOD UREA NITROGEN 20 mg/dl (9-20); CALCIUM 8.6 mg/dL (8.4-10.2); CARBON DIOXIDE 28 mmol/L (22-30); CHLORIDE 106 mmol/L (98-107); GFR AFRICAN-AMERICAN > 60; GLUCOSE,RANDOM 107 mg/dL (75-110); SODIUM 142 mmol/l (132-148); TOTAL PROTEIN 5.5 G/DL (6.3-8.2)
[2017-06-27 23:00] LABS: PARTIAL THROMBOPLASTIN TIME 33.7 Seconds (25.6-37.1)
[2017-06-27 23:05] LABS: WHITE BLOOD COUNT 1.2 K/uL (4.8-10.8)
[2017-06-28] MEDS ORDERED: Pantoprazole 40 mg EC Tab PO SCH (09:00)
[2017-06-28] MEDS ORDERED: Patient's Own Med (Solifenacin Succinate [Vesicare] 5 MG) PO SCH (09:00)
--- NOTE | 2017-06-28 09:05 | CP.PCM.CON ---
History of Present Illness - History of Present Illness History of Present Illness: This is a 82 yrs old ,male whom I had seen about 6 months ago when he was admitted for pancytopenia. he was diagnosed to have MDSb He went to [facility] for treatment.. He was started on cjhemotherapy with azacitidine and did well for a while. Last chemo was 2 weeks ago. Recently his blood counts kert deopping and a bone marrow was done 2 days ago. He seemed stable in the beginning, but now all the counts were dropping and he had a bone marrow done on 06/26/17. He however had a cough last night and had a significant amount of blood in the phlegm and came to the ER where he was found to have a WBC of 1.2 with a ANC of 800, hgb 6.9 and a platelet count of 26. He was transfused 1 unit of packed cells last night , and then 1 unit of platelets this morning. He will receive another unit of packed cells toay. He is a patient of Dr Cuevas at [facility] [place]. I have left a message for him to call ,me back He has a past h/o HTM,Hyperlipidemia, CAD, CVA and now MDS Past Patient History - Past Medical History & Family History Past Medical History?: Yes - Past Social History Smoking Status: Never Smoked - CARDIAC Hx Hypercholesterolemia: Yes Hx Hypertension: Yes Hx Pacemaker: Yes (left chest wall) - PULMONARY Hx Pneumonia: Yes - NEUROLOGICAL HX Cerebrovascular Accident: Yes - HEENT Other/Comment: Cataracts sx b/l eyes. - RENAL Hx Chronic Kidney Disease: Yes Other/Comment: Only has right kidney. - ENDOCRINE/METABOLIC Hx Endocrine Disorders: No - HEMATOLOGICAL/ONCOLOGICAL Hx Blood Transfusions: Yes Hx Blood Transfusion Reaction: No Hx Human Immunodeficiency Virus (HIV): No - INTEGUMENTARY Hx Dermatological Problems: No - MUSCULOSKELETAL/RHEUMATOLOGICAL Hx Falls: Yes Other/Comment: BACK SURGERY 2010 - GASTROINTESTINAL Hx Pancreatitis: Yes - GENITOURINARY/GYNECOLOGICAL Hx Prostate Problems: Yes (Enlarged prostate.) - PSYCHIATRIC Hx Psychophysiologic Disorder: No Hx Substance Use: No - SURGICAL HISTORY Hx Cholecystectomy: Yes Hx Coronary Artery Bypass Graft: Yes - ANESTHESIA Hx Anesthesia: Yes Hx Anesthesia Reactions: No Hx Malignant Hyperthermia: No Has any member of the family had a problem w/ anesthesia?: No Meds Allergies/Adverse Reactions: Allergies Allergy/AdvReac Type Severity Reaction Status Date / Time No Known Allergies Allergy Verified 11/18/16 16:52 - Medications Medications: Current Medications Gabapentin (Neurontin) 200 mg PO DAILY [facility] Gabapentin (Neurontin) 300 mg PO HS [facility] (Simvastatin [Zocor]) 80 mg PO DAILY [facility] Home Med (Solifenacin Succinate [Vesicare]) 5 mg PO DAILY [facility] Metoprolol Succinate (Toprol Xl) 50 mg PO DAILY [facility] Pantoprazole Sodium (Protonix Ec Tab) 40 mg PO DAILY [facility] Tamsulosin HCl (Flomax) 2 mg PO DAILY [facility] Physical Exam - Additional Findings Additional findings: Physical exam; Alert well oriented, in n9 acute distress neck; supple, no adenopathy Neck; Supple, no adenopathy Chest; air entry good no rales or rhonchi, Heart; RSR, no murmur Abd; Soft, no mass, no h/s megaly Results - Vital Signs Recent Vital Signs: Last Vital Signs Temp 97.7 F 06/28/17 05:51 Pulse 90 06/28/17 05:55 Resp 13 06/28/17 05:55 BP 153/65 H 06/28/17 05:51 Pulse Ox 95 06/28/17 05:55 - Labs Result Diagrams: 06/27/17 22:18 06/27/17 22:18 Labs: Laboratory Results - last 24 hr 06/27/17 06/27/17 06/27/17 22:18 22:18 22:18 WBC 1.2 L* D RBC 2.39 L Hgb 6.9 L D Hct 21.0 L MCV 87.6 D MCH 28.9 MCHC 32.9 L RDW 18.3 H Plt Count 26 L* D MPV 10.3 Neut % (Auto) 67.3 Lymph % (Auto) 19.6 L Floyd % (Auto) 11.9 H Eos % (Auto) 0.6 Baso % (Auto) 0.6 Neut # 0.8 L Lymph # 0.2 L Floyd # 0.1 Eos # 0.0 Baso # 0.0 PT 15.6 H INR 1.4 H APTT 33.7 Sodium 142 Potassium 4.0 Chloride 106 Carbon Dioxide 28 Anion Gap 11 BUN 20 Creatinine 1.2 Est GFR ( Amer) > 60 Est GFR (Non-Af Amer) 58 Random Glucose 107 Calcium 8.6 Total Bilirubin 2.4 H AST 24 ALT 40 Alkaline Phosphatase 62 Total Protein 5.5 L Albumin 3.4 L D Globulin 2.0 L Albumin/Globulin Ratio 1.7 Blood Type Antibody Screen Crossmatch BBK History Checked 06/27/17 22:18 WBC RBC Hgb Hct MCV MCH MCHC RDW Plt Count MPV Neut % (Auto) Lymph % (Auto) Floyd % (Auto) Eos % (Auto) Baso % (Auto) Neut # Lymph # Floyd # Eos # Baso # PT INR APTT Sodium Potassium Chloride Carbon Dioxide Anion Gap BUN Creatinine Est GFR ( Amer) Est GFR (Non-Af Amer) Random Glucose Calcium Total Bilirubin AST ALT Alkaline Phosphatase Total Protein Albumin Globulin Albumin/Globulin Ratio Blood Type O POSITIVE Antibody Screen Negative Crossmatch See Detail BBK History Checked Patient has bt Assessment & Plan - Assessment and Plan (Free Text) Assessment: Impression; Hemoptysis secondary to thrombocytopenia. Plan: Plan; Will transfuse as needed, Will give him a couple of doses of neupogenas well. - Date & Time Date: 06/28/17 Time: 09:11
--- NOTE | 2017-06-28 09:17 | CP.PCM.CON ---
History of Present Illness - History of Present Illness History of Present Illness: this 82-year-old man is well-known to me. He has had coronary artery disease requiring coronary bypass graft surgery in 1997 and subsequently needed additional coronary stenting. He had critical aortic stenosis requiring aortic valve replacement with a tissue graft using TAVR. The patient had a subdural hematoma following a fall more than 10 years back. Subsequently he required a DDD pacemaker implant in 2006. Transtelephonic pacemaker checkups have been satisfactory. The patient also has hypertension and dyslipidemia for which she takes medications. The patient also has moderate degree of claudication. The patient is being followed by a manager office for myelodysplastic syndrome detected in October 2013 when the patient was being evaluated for coronary angiography preceding his aortic valve replacement.and recently required chemotherapy. a recent bone marrow aspiration demonstrated significant depression in white cell and platelet production. The patient saw blood in his expectorate and urgently arrived in the emergency room from where he is hospitalized. He denies any episodes of angina following aortic valve replacement. He has never manifested overt congestive cardiac failure. Physical examination shows an elderly man who appears mildly exhausted slightly pale and afebrile. Breathes comfortably at 14-16 breaths per minute and has a heart rate of 78 bpm and regular. His extremities were warm and mentation was clear. His blood pressure was 124/74 mmHg in the right upper extremity. His pedal pulses are not palpable. There was no edema over his lower extremity. There were no carotid bruits. A scar of sternotomy was evident on his chest and large sebaceous cyst was present in the right parasternal area in the second and third intercostal space. The apex was not palpable. The first and second heart sounds were normal. A brief ejection systolic murmur in the aortic area was present conducted to the base of the neck. There were no rales. 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 His labs were noted. There was severe leukocytopenia and thrombocytopenia as well as anemia. The patient is in the process of receiving platelet transfusion and has already received one unit of packed red blood cells. He will be receiving granix in an attempt to boost his white blood cell count. 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 Hemoptysis. Stable coronary artery disease following coronary bypass graft surgery. Status post DDD pacemaker implant and status post aortic valve replacement with TAVR. The patient is hemodynamically stable and does not require any immediate cardiac intervention. Past Patient History - Past Medical History & Family History Past Medical History?: Yes - Past Social History Smoking Status: Never Smoked - CARDIAC Hx Hypercholesterolemia: Yes Hx Hypertension: Yes Hx Pacemaker: Yes (left chest wall) - PULMONARY Hx Pneumonia: Yes - NEUROLOGICAL HX Cerebrovascular Accident: Yes - HEENT Other/Comment: Cataracts sx b/l eyes. - RENAL Hx Chronic Kidney Disease: Yes Other/Comment: Only has right kidney. - ENDOCRINE/METABOLIC Hx Endocrine Disorders: No - HEMATOLOGICAL/ONCOLOGICAL Hx Blood Transfusions: Yes Hx Blood Transfusion Reaction: No Hx Human Immunodeficiency Virus (HIV): No - INTEGUMENTARY Hx Dermatological Problems: No - MUSCULOSKELETAL/RHEUMATOLOGICAL Hx Falls: Yes Other/Comment: BACK SURGERY 2010 - GASTROINTESTINAL Hx Pancreatitis: Yes - GENITOURINARY/GYNECOLOGICAL Hx Prostate Problems: Yes (Enlarged prostate.) - PSYCHIATRIC Hx Psychophysiologic Disorder: No Hx Substance Use: No - SURGICAL HISTORY Hx Cholecystectomy: Yes Hx Coronary Artery Bypass Graft: Yes - ANESTHESIA Hx Anesthesia: Yes Hx Anesthesia Reactions: No Hx Malignant Hyperthermia: No Has any member of the family had a problem w/ anesthesia?: No Meds Allergies/Adverse Reactions: Allergies Allergy/AdvReac Type Severity Reaction Status Date / Time No Known Allergies Allergy Verified 11/18/16 16:52 - Medications Medications: Current Medications Gabapentin (Neurontin) 200 mg PO DAILY [facility] Gabapentin (Neurontin) 300 mg PO HS [facility] Med (Simvastatin [Zocor]) 80 mg PO DAILY [facility] Home Med (Solifenacin Succinate [Vesicare]) 5 mg PO DAILY [facility] Metoprolol Succinate (Toprol Xl) 50 mg PO DAILY [facility] Pantoprazole Sodium (Protonix Ec Tab) 40 mg PO DAILY [facility] Tamsulosin HCl (Flomax) 2 mg PO DAILY [facility] Results - Vital Signs Recent Vital Signs: Last Vital Signs Temp 97.7 F 06/28/17 05:51 Pulse 90 06/28/17 05:55 Resp 13 06/28/17 05:55 BP 153/65 H 06/28/17 05:51 Pulse Ox 95 06/28/17 05:55 - Labs Result Diagrams: 06/27/17 22:18 06/27/17 22:18 Labs: Laboratory Results - last 24 hr 06/27/17 06/27/17 06/27/17 22:18 22:18 22:18 WBC 1.2 L* D RBC 2.39 L Hgb 6.9 L D Hct 21.0 L MCV 87.6 D MCH 28.9 MCHC 32.9 L RDW 18.3 H Plt Count 26 L* D MPV 10.3 Neut % (Auto) 67.3 Lymph % (Auto) 19.6 L Jennings % (Auto) 11.9 H Eos % (Auto) 0.6 Baso % (Auto) 0.6 Neut # 0.8 L Lymph # 0.2 L Jennings # 0.1 Eos # 0.0 Baso # 0.0 PT 15.6 H INR 1.4 H APTT 33.7 Sodium 142 Potassium 4.0 Chloride 106 Carbon Dioxide 28 Anion Gap 11 BUN 20 Creatinine 1.2 Est GFR ( Amer) > 60 Est GFR (Non-Af Amer) 58 Random Glucose 107 Calcium 8.6 Total Bilirubin 2.4 H AST 24 ALT 40 Alkaline Phosphatase 62 Total Protein 5.5 L Albumin 3.4 L D Globulin 2.0 L Albumin/Globulin Ratio 1.7 Blood Type Antibody Screen Crossmatch BBK History Checked 06/27/17 22:18 WBC RBC Hgb Hct MCV MCH MCHC RDW Plt Count MPV Neut % (Auto) Lymph % (Auto) Jennings % (Auto) Eos % (Auto) Baso % (Auto) Neut # Lymph # Jennings # Eos # Baso # PT INR APTT Sodium Potassium Chloride Carbon Dioxide Anion Gap BUN Creatinine Est GFR ( Amer) Est GFR (Non-Af Amer) Random Glucose Calcium Total Bilirubin AST ALT Alkaline Phosphatase Total Protein Albumin Globulin Albumin/Globulin Ratio Blood Type O POSITIVE Antibody Screen Negative Crossmatch See Detail BBK History Checked Patient has bt
[2017-06-28] MEDS: Metoprolol Succinate 50 mg XL Tab PO SCH (09:47)
--- NOTE | 2017-06-28 11:05 | CP.PCM.HP ---
History of Present Illness - History of Present Illness History of Present Illness: Pt seen and examined with attending. 82-year-old male with history of hypertension, hyperlipidemia MDS presented to [place] ED with complaints of coughing up blood after having soup for dinner last night.the patient has had MDS since 2013, and he follows up regularly with his senior application software engineer at [facility]. He states that his blood counts have been dropping over the last few months. But they were stable for some time. This morning he denies any more episode of hemoptysis, he was able to tolerate his breakfast, without nausea or vomiting. He does report that he has had a productive cough for many years, and that he has had many studies of his lungs done, has never been given a diagnosis. He is non smoker. He has pacemaker, and is s/p aortic valve replacement. PMH: HTM, Hyperlipidemia, CAD, MDS Meds: reviewed Allergies: NKDA Present on Admission - Present on Admission Any Indicators Present on Admission: No Past Patient History - Past Medical History & Family History Past Medical History?: Yes - Past Social History Smoking Status: Never Smoked - CARDIAC Hx Hypercholesterolemia: Yes Hx Hypertension: Yes Hx Pacemaker: Yes (left chest wall) - PULMONARY Hx Pneumonia: Yes - NEUROLOGICAL HX Cerebrovascular Accident: Yes - HEENT Other/Comment: Cataracts sx b/l eyes. - RENAL Hx Chronic Kidney Disease: Yes Other/Comment: Only has right kidney. - ENDOCRINE/METABOLIC Hx Endocrine Disorders: No - HEMATOLOGICAL/ONCOLOGICAL Hx Blood Transfusions: Yes Hx Blood Transfusion Reaction: No Hx Human Immunodeficiency Virus (HIV): No - INTEGUMENTARY Hx Dermatological Problems: No - MUSCULOSKELETAL/RHEUMATOLOGICAL Hx Falls: Yes Other/Comment: BACK SURGERY 2010 - GASTROINTESTINAL Hx Pancreatitis: Yes - GENITOURINARY/GYNECOLOGICAL Hx Prostate Problems: Yes (Enlarged prostate.) - PSYCHIATRIC Hx Psychophysiologic Disorder: No Hx Substance Use: No - SURGICAL HISTORY Hx Cholecystectomy: Yes Hx Coronary Artery Bypass Graft: Yes - ANESTHESIA Hx Anesthesia: Yes Hx Anesthesia Reactions: No Hx Malignant Hyperthermia: No Has any member of the family had a problem w/ anesthesia?: No Meds Allergies/Adverse Reactions: Allergies Allergy/AdvReac Type Severity Reaction Status Date / Time No Known Allergies Allergy Verified 11/18/16 16:52 Physical Exam - Constitutional Additional comments: appears tired, pale - Head Exam Head Exam: NORMOCEPHALIC - Eye Exam Eye Exam: Normal appearance - Respiratory Exam Respiratory Exam: Rhonchi, NORMAL BREATHING PATTERN. absent: Accessory Muscle Use, Decreased Breath Sounds, Prolonged Expiratory Phase - Cardiovascular Exam Cardiovascular Exam: REGULAR RHYTHM, +S1, +S2 - GI/Abdominal Exam GI & Abdominal Exam: Soft. absent: Distended, Guarding, Tenderness - Neurological Exam Neurological exam: Alert, CN II-XII Intact, Oriented x3 - Psychiatric Exam Psychiatric exam: Normal Affect, Normal Mood - Skin Skin Exam: Dry, Intact, Pallor Results - Vital Signs Recent Vital Signs: Last Vital Signs Temp 97.7 F 06/28/17 05:51 Pulse 89 06/28/17 09:47 Resp 13 06/28/17 05:55 BP 147/75 06/28/17 09:47 Pulse Ox 95 06/28/17 05:55 - Labs Result Diagrams: 06/27/17 22:18 06/27/17 22:18 Labs: Laboratory Results - last 24 hr 06/27/17 06/27/17 06/27/17 22:18 22:18 22:18 WBC 1.2 L* D RBC 2.39 L Hgb 6.9 L D Hct 21.0 L MCV 87.6 D MCH 28.9 MCHC 32.9 L RDW 18.3 H Plt Count 26 L* D MPV 10.3 Neut % (Auto) 67.3 Lymph % (Auto) 19.6 L [place] % (Auto) 11.9 H Eos % (Auto) 0.6 Baso % (Auto) 0.6 Neut # 0.8 L Lymph # 0.2 L [place] # 0.1 Eos # 0.0 Baso # 0.0 PT 15.6 H INR 1.4 H APTT 33.7 Sodium 142 Potassium 4.0 Chloride 106 Carbon Dioxide 28 Anion Gap 11 BUN 20 Creatinine 1.2 Est GFR ( Amer) > 60 Est GFR (Non-Af Amer) 58 Random Glucose 107 Calcium 8.6 Total Bilirubin 2.4 H AST 24 ALT 40 Alkaline Phosphatase 62 Total Protein 5.5 L Albumin 3.4 L D Globulin 2.0 L Albumin/Globulin Ratio 1.7 Blood Type Antibody Screen Crossmatch BBK History Checked 06/27/17 22:18 WBC RBC Hgb Hct MCV MCH MCHC RDW Plt Count MPV Neut % (Auto) Lymph % (Auto) [place] % (Auto) Eos % (Auto) Baso % (Auto) Neut # Lymph # [place] # Eos # Baso # PT INR APTT Sodium Potassium Chloride Carbon Dioxide Anion Gap BUN Creatinine Est GFR ( Amer) Est GFR (Non-Af Amer) Random Glucose Calcium Total Bilirubin AST ALT Alkaline Phosphatase Total Protein Albumin Globulin Albumin/Globulin Ratio Blood Type O POSITIVE Antibody Screen Negative Crossmatch See Detail BBK History Checked Patient has bt Assessment & Plan (1) Hemoptysis Status: Acute (2) Pancytopenia Status: Acute (3) MDS (myelodysplastic syndrome) Status: Chronic Priority: High (4) Hypertension Status: Chronic (5) DVT prophylaxis Status: Acute - Assessment and Plan (Free Text) Assessment: 82 year old male admitted with hemoptysis, pancytopenia 2' to myelodysplastic syndrome. Patient appears tired, pale, but is hemodynamically stable. He has been seen and evaluated by cardiology and hematology. Stable from cardiac point of view. Hematology has ordered 2 units PRBCS, and 1 unit of platelets. Monitor for recurrence of bleeding. #Hemoptysis-resolved #Pancytopenia #MDS #Prophylaxis : GI/DVT - transfuse 2 units PRBCs, 1 unit of platelets. - Will start prontonix for GI prophylaxis given his hemoptysis and thrombocytopenia. - pt made npo but had eaten breakfast already, will monitor for dark BM/ hemoptysis/emesis -Patient has rhonchi diffusely, will start duonebs, and get CXR, start tx with rocephin/azithro for possible pneumonia given his immunocompromised status and lung exam. case d/w Dr. Morejon
--- NOTE | 2017-06-28 15:01 | RAD ---
HISTORY: productive cough COMPARISON: Comparison chest 12/15/2016 TECHNIQUE: Chest PA and lateral FINDINGS: LUNGS: Bilateral lower lobe opacities right greater than left consistent with some combination of bilateral atelectasis and or infiltrates and bilateral effusions. PLEURA: No significant pleural effusion identified. No pneumothorax apparent. CARDIOVASCULAR: Sternotomy wires and CABG clips again noted. No change bipolar pacemaker. Cardiomegaly. OSSEOUS STRUCTURES: No significant abnormalities. VISUALIZED UPPER ABDOMEN: Normal. OTHER FINDINGS: None. IMPRESSION: Bibasilar opacities consistent with with some combination of atelectasis/ infiltrate and bilateral effusions.
[2017-06-28] MEDS: Azithromycin 500 MG in Sodium Chloride 0.9% 250 ML IVPB SCH (15:13)
[2017-06-28 15:26] LABS: MEAN CELL VOLUME 86.6 fl (80.0-94.0); MEAN CORPUSCULAR HGB CONC 34.6 g/dL (33.0-37.0); RED CELL DISTRIBUTION WIDTH 16.1 % (11.5-14.5); WHITE BLOOD COUNT 2.6 K/uL (4.8-10.8)
[2017-06-28] MEDS: Albuterol-Ipratrop 3 mg / 0.5 (3 ml) UD INH SCH ×3 (15:32→23:47)
[2017-06-28] MEDS: cefTRIAXone IV 1 gm in Dextros 50 ML IVPB SCH (16:57)
[2017-06-28 21:07] LABS: HEMATOCRIT 21.3 % (35.0-51.0); MEAN CELL VOLUME 86.6 fl (80.0-94.0); MEAN CORPUSCULAR HEMOGLOBIN 29.4 pg (27.0-31.0); MEAN CORPUSCULAR HGB CONC 33.9 g/dL (33.0-37.0); RED CELL DISTRIBUTION WIDTH 16.3 % (11.5-14.5); WHITE BLOOD COUNT 3.2 K/uL (4.8-10.8)
--- NOTE | 2017-06-28 22:33 | CT ---
EXAM: CT Chest Without Intravenous Contrast CLINICAL HISTORY: 82 years old, male; Signs and symptoms; Other: Hemoptysis; Prior surgery; Surgery date: 6+ months; Surgery type: Aortic heart valve replace. Cabk. Pacemaker TECHNIQUE: Axial computed tomography images of the chest without intravenous contrast. All CT scans at this facility use one or more dose reduction techniques, viz.: automated exposure control; ma/kV adjustment per patient size (including targeted exams where dose is matched to indication; i.e. head); or iterative reconstruction technique. Coronal and sagittal reformatted images were created and reviewed. COMPARISON: CT - CHEST W/O CONTRAST 2016-11-23 10:50 EXAM: FINDINGS: Lungs: No mass. No consolidation. Moderate bilateral pleural effusions (right greater than left, partially loculated on the left ) with adjacent compressive atelectasis. Pleural spaces: As above. No pneumothorax. Heart: The heart is enlarged, without significant pericardial effusion. A left anterior chest wall pacemaker is identified, with its leads projecting into the atrium and ventricle. Vasculature: No aortic aneurysm. Calcified atherosclerotic disease. Lymph nodes: Minimally enlarged lymph nodes are identified within the bilateral axilla and mediastinum, unchanged from prior. Bones: No acute fracture. Sternal wires are present, midline and intact. Fluid attenuation focus measuring 3.7 x 6.7 cm within the subcutaneous soft tissues of the right anterior chest wall, unchanged from prior imaging. IMPRESSION: Interval increase in the bilateral pleural effusions (right greater than left) now partially loculated on the left. The examination is otherwise unchanged from previous study.
--- NOTE | 2017-06-28 22:40 | CARD ---
APPROVED REPORT EKG Measurement Heart [id number] OR [id number] [id number] <Conclusion> Normal sinus rhythm Left axis deviation Right bundle branch block Abnormal ECG
[2017-06-29 04:57] LABS: MEAN CORPUSCULAR HEMOGLOBIN 29.9 pg (27.0-31.0); MEAN CORPUSCULAR HGB CONC 33.9 g/dL (33.0-37.0); WHITE BLOOD COUNT 10.9 K/uL (4.8-10.8)
[2017-06-29] MEDS: Albuterol-Ipratrop 3 mg / 0.5 (3 ml) UD INH SCH ×5 (04:58→19:08)
[2017-06-29 05:05] LABS: CALCIUM 8.5 mg/dL (8.4-10.2); HEMATOCRIT 22.8 % (35.0-51.0); MEAN CELL VOLUME 88.1 fl (80.0-94.0); POTASSIUM 3.9 MMOL/L (3.6-5.0); RED CELL DISTRIBUTION WIDTH 16.4 % (11.5-14.5)
[2017-06-29] MEDS ORDERED: cefTRIAXone IV 1 gm in Dextros 50 ML IVPB SCH (09:00)
[2017-06-29] MEDS ORDERED: Azithromycin 500 MG in Sodium Chloride 0.9% 250 ML IVPB SCH (09:00)
[2017-06-29] MEDS: Metoprolol Succinate 50 mg XL Tab PO SCH (09:06)
[2017-06-29] MEDS: Azithromycin 500 MG in Sodium Chloride 0.9% 250 ML IVPB SCH (09:24)
[2017-06-29] MEDS: cefTRIAXone IV 1 gm in Dextros 50 ML IVPB SCH (09:24)
--- NOTE | 2017-06-29 19:33 | CP.PCM.CON ---
Past Patient History - Past Medical History & Family History Past Medical History?: Yes - Past Social History Smoking Status: Never Smoked - CARDIAC Hx Hypercholesterolemia: Yes Hx Hypertension: Yes Hx Pacemaker: Yes (left chest wall) - PULMONARY Hx Pneumonia: Yes - NEUROLOGICAL HX Cerebrovascular Accident: Yes - HEENT Other/Comment: Cataracts sx b/l eyes. - RENAL Hx Chronic Kidney Disease: Yes Other/Comment: Only has right kidney. - ENDOCRINE/METABOLIC Hx Endocrine Disorders: No - HEMATOLOGICAL/ONCOLOGICAL Hx Blood Transfusions: Yes Hx Blood Transfusion Reaction: No Hx Human Immunodeficiency Virus (HIV): No - INTEGUMENTARY Hx Dermatological Problems: No - MUSCULOSKELETAL/RHEUMATOLOGICAL Hx Falls: Yes Other/Comment: BACK SURGERY 2010 - GASTROINTESTINAL Hx Pancreatitis: Yes - GENITOURINARY/GYNECOLOGICAL Hx Prostate Problems: Yes (Enlarged prostate.) - PSYCHIATRIC Hx Psychophysiologic Disorder: No Hx Substance Use: No - SURGICAL HISTORY Hx Cholecystectomy: Yes Hx Coronary Artery Bypass Graft: Yes - ANESTHESIA Hx Anesthesia: Yes Hx Anesthesia Reactions: No Hx Malignant Hyperthermia: No Has any member of the family had a problem w/ anesthesia?: No Meds Allergies/Adverse Reactions: Allergies Allergy/AdvReac Type Severity Reaction Status Date / Time No Known Allergies Allergy Verified 11/18/16 16:52 - Medications Medications: Current Medications Albuterol/Ipratropium (Duoneb 3 Mg/0.5 Mg (3 Ml) Ud) 3 ml INH RQ4 [facility] Last Admin: 06/29/17 19:08 Dose: 3 ml Amlodipine Besylate (Norvasc) 2.5 mg PO DAILY [facility] Last Admin: 06/29/17 09:07 Dose: 2.5 mg Atorvastatin Calcium (Lipitor) 40 mg PO DAILY [facility] Last Admin: 06/29/17 09:03 Dose: 40 mg Gabapentin (Neurontin) 200 mg PO DAILY [facility] Last Admin: 06/29/17 09:03 Dose: 200 mg Gabapentin (Neurontin) 300 mg PO HS [facility] Last Admin: 06/28/17 21:52 Dose: 300 mg Home Med (Solifenacin Succinate [Vesicare]) 5 mg PO DAILY [facility] Azithromycin 500 mg/ Sodium (Chloride) 250 mls @ 250 mls/hr IVPB DAILY [facility] PRN Reason: Protocol Last Admin: 06/29/17 09:24 Dose: 250 mls/hr Ceftriaxone Sodium (Rocephin Iv 1 Gm Duplex) 50 mls @ 50 mls/hr IVPB DAILY [facility] PRN Reason: Protocol Last Admin: 06/29/17 09:24 Dose: 50 mls/hr Metoprolol Succinate (Toprol Xl) 50 mg PO DAILY [facility] Last Admin: 06/29/17 09:06 Dose: 50 mg Pantoprazole Sodium (Protonix Inj) 40 mg IVP DAILY [facility] Last Admin: 06/29/17 09:03 Dose: 40 mg Tamsulosin HCl (Flomax) 0.8 mg PO DAILY [facility] Last Admin: 06/29/17 09:09 Dose: 0.8 mg Results - Vital Signs Recent Vital Signs: Last Vital Signs Temp 97.9 F 06/29/17 15:56 Pulse 86 06/29/17 15:56 Resp 20 06/29/17 15:56 BP 123/59 L 06/29/17 15:56 Pulse Ox 94 L 06/29/17 15:56 - Labs Result Diagrams: 06/29/17 04:52 06/29/17 04:52 Labs: Laboratory Results - last 24 hr 06/27/17 06/28/17 06/29/17 22:18 20:30 04:52 WBC 3.2 L 10.9 H D RBC 2.46 L 2.59 L Hgb 7.2 L 7.7 L Hct 21.3 L 22.8 L MCV 86.6 88.1 MCH 29.4 29.9 MCHC 33.9 33.9 RDW 16.3 H 16.4 H Plt Count 42 L D 61 L Sodium Potassium Chloride Carbon Dioxide Anion Gap BUN Creatinine Est GFR ( Amer) Est GFR (Non-Af Amer) Random Glucose Calcium Blood Type O POSITIVE Antibody Screen Negative Crossmatch See Detail BBK History Checked Patient has bt 06/29/17 04:52 WBC RBC Hgb Hct MCV MCH MCHC RDW Plt Count Sodium 143 Potassium 3.9 Chloride 106 Carbon Dioxide 27 Anion Gap 14 BUN 33 H Creatinine 1.4 Est GFR ( Amer) 59 Est GFR (Non-Af Amer) 48 Random Glucose 101 Calcium 8.5 Blood Type Antibody Screen Crossmatch BBK History Checked
[2017-06-30] MEDS: Albuterol-Ipratrop 3 mg / 0.5 (3 ml) UD INH SCH ×7 (00:04→23:55)
[2017-06-30] MEDS: Metoprolol Succinate 50 mg XL Tab PO SCH (09:19)
[2017-06-30] MEDS: cefTRIAXone IV 1 gm in Dextros 50 ML IVPB SCH (09:19)
[2017-06-30] MEDS: Azithromycin 500 MG in Sodium Chloride 0.9% 250 ML IVPB SCH (09:19)
--- NOTE | 2017-06-30 12:26 | CP.PCM.PN ---
Subjective - Date & Time of Evaluation Date of Evaluation: 06/30/17 Time of Evaluation: 12:24 - Subjective Subjective: Pt feels better. No c/o hemoptysis , no cough or tarry stools . He was transfuse packed cells yesterday but the cbc is not yet available. Will ck his counts tomorrow. Objective - Vital Signs/Intake and Output Vital Signs (last 24 hours): Temp Pulse Resp BP Pulse Ox 98.3 F 91 H 18 136/71 100 06/30/17 08:00 06/30/17 09:19 06/30/17 08:00 06/30/17 09:19 06/30/17 08:00 - Medications Medications: Current Medications Albuterol/Ipratropium (Duoneb 3 Mg/0.5 Mg (3 Ml) Ud) 3 ml INH RQ4 [facility] Last Admin: 06/30/17 11:18 Dose: 3 ml Amlodipine Besylate (Norvasc) 2.5 mg PO DAILY [facility] Last Admin: 06/30/17 09:18 Dose: 2.5 mg Atorvastatin Calcium (Lipitor) 40 mg PO DAILY [facility] Last Admin: 06/30/17 09:17 Dose: 40 mg Gabapentin (Neurontin) 200 mg PO DAILY [facility] Last Admin: 06/30/17 09:18 Dose: 200 mg Gabapentin (Neurontin) 300 mg PO HS [facility] Last Admin: 06/29/17 21:03 Dose: 300 mg Home Med (Solifenacin Succinate [Vesicare]) 5 mg PO DAILY [facility] Azithromycin 500 mg/ Sodium (Chloride) 250 mls @ 250 mls/hr IVPB DAILY [facility] PRN Reason: Protocol Last Admin: 06/30/17 09:19 Dose: 250 mls/hr Ceftriaxone Sodium (Rocephin Iv 1 Gm Duplex) 50 mls @ 50 mls/hr IVPB DAILY [facility] PRN Reason: Protocol Last Admin: 06/30/17 09:19 Dose: 50 mls/hr Metoprolol Succinate (Toprol Xl) 50 mg PO DAILY [facility] Last Admin: 06/30/17 09:19 Dose: 50 mg Pantoprazole Sodium (Protonix Inj) 40 mg IVP DAILY [facility] Last Admin: 06/30/17 09:18 Dose: 40 mg Tamsulosin HCl (Flomax) 0.8 mg PO DAILY [facility] Last Admin: 11/12/17 09:18 Dose: 0.8 mg - Labs Labs: 06/29/17 04:52 06/29/17 04:52 PT 15.6 Seconds (9.8-13.1) H 06/27/17 22:18 INR 1.4 (0.9-1.2) H 06/27/17 22:18 APTT 33.7 Seconds (25.6-37.1) 06/27/17 22:18
--- NOTE | 2017-06-30 13:24 | CP.PCM.CON ---
History of Present Illness - History of Present Illness History of Present Illness: Call in Pulmonary consult for Hemoptysis. 82 y/o M, [facility] of coughing up bright red blood after dinner and 5 there after, onset hrs [employer] with no relief, associated chronic cough, denied chest pain even when coughing. Worsening symptoms: Tiredness, CT Chest reveals increased b/l effusions R>L. 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 Aggravated factor: Not been responding to chemo Tx. He states, yesterday he received a bone narrow that showed a drop in the PLT from 100 to 36. Pt denied: Fever, chills, n/v/d, abdominal pain, CP, palpitations, dizziness, syncope, numbness, urinary symptoms, sick contact, recent travel out of [place]. Pt Review of Systems - Constitutional Constitutional: Other (tired) - EENT Eyes: Requires Corrective Lenses Ears: Other (negative) Nose/Mouth/Throat: Nasal Congestion - Cardiovascular Cardiovascular: Leg Edema, Rapid Heart Rate - Respiratory Respiratory: Cough, Dyspnea, Chest Congestion - Gastrointestinal Gastrointestinal: Other (negative) - Genitourinary Genitourinary: Other (negative) - Musculoskeletal Musculoskeletal: Other (negative) - Integumentary Integumentary: Other (negative) - Neurological Neurological: Other (negative) - Psychiatric Psychiatric: Other - Endocrine Endocrine: Other (negative) - Hematologic/Lymphatic Hematologic: Other (anemia) Past Patient History - Past Medical History & Family History Past Medical History?: Yes Pertinent Family History: Unknown - Past Social History Smoking Status: Never Smoked Alcohol: Occasional Drugs: Denies Home Situation {Lives}: With Family - CARDIAC Hx Cardiac Disorders: Yes Hx Heart Attack: Yes (1983) Hx Hypercholesterolemia: Yes Hx Hypertension: Yes Hx Pacemaker: Yes (left chest wall) Other/Comment: Aortic valve disease - PULMONARY Hx Respiratory Disorders: Yes Hx Emphysema: Yes Hx Pneumonia: Yes - NEUROLOGICAL Hx Neurological Disorder: Yes HX Cerebrovascular Accident: Yes - HEENT Hx HEENT Problems: Yes Other/Comment: Cataracts sx b/l eyes. - RENAL Hx Chronic Kidney Disease: Yes Other/Comment: Only has right kidney. - ENDOCRINE/METABOLIC Hx Endocrine Disorders: No - HEMATOLOGICAL/ONCOLOGICAL Hx Blood Disorders: Yes Hx Blood Transfusions: Yes Hx Blood Transfusion Reaction: No Hx Cancer: Yes (Myeloplastic Displastic Disorder) Hx Human Immunodeficiency Virus (HIV): No Other/Comment: Ongoing Chemo. Low PLT - INTEGUMENTARY Hx Dermatological Problems: No - MUSCULOSKELETAL/RHEUMATOLOGICAL Hx Musculoskeletal Disorders: Yes Hx Falls: Yes Other/Comment: BACK SURGERY 2010 - GASTROINTESTINAL Hx Gastrointestinal Disorders: Yes Hx Pancreatitis: Yes - GENITOURINARY/GYNECOLOGICAL Hx Genitourinary Disorders: Yes Hx Prostate Problems: Yes (Enlarged prostate.) - PSYCHIATRIC Hx Psychophysiologic Disorder: No Hx Substance Use: No - SURGICAL HISTORY Hx Surgeries: Yes Hx Cholecystectomy: Yes Hx Coronary Artery Bypass Graft: Yes Other/Comment: Thoracoronary R for emphysema. - ANESTHESIA Hx Anesthesia: Yes Hx Anesthesia Reactions: No Hx Malignant Hyperthermia: No Has any member of the family had a problem w/ anesthesia?: No Meds Allergies/Adverse Reactions: Allergies Allergy/AdvReac Type Severity Reaction Status Date / Time No Known Allergies Allergy Verified 11/18/16 16:52 - Medications Medications: Current Medications Albuterol/Ipratropium (Duoneb 3 Mg/0.5 Mg (3 Ml) Ud) 3 ml INH RQ4 [facility] Last Admin: 06/30/17 11:18 Dose: 3 ml Amlodipine Besylate (Norvasc) 2.5 mg PO DAILY [facility] Last Admin: 06/30/17 09:18 Dose: 2.5 mg Atorvastatin Calcium (Lipitor) 40 mg PO DAILY [facility] Last Admin: 06/30/17 09:17 Dose: 40 mg Gabapentin (Neurontin) 200 mg PO DAILY [facility] Last Admin: 06/30/17 09:18 Dose: 200 mg Gabapentin (Neurontin) 300 mg PO HS [facility] Last Admin: 06/29/17 21:03 Dose: 300 mg Home Med (Solifenacin Succinate [Vesicare]) 5 mg PO DAILY [facility] Azithromycin 500 mg/ Sodium (Chloride) 250 mls @ 250 mls/hr IVPB DAILY [facility] PRN Reason: Protocol Last Admin: 06/30/17 09:19 Dose: 250 mls/hr Ceftriaxone Sodium (Rocephin Iv 1 Gm Duplex) 50 mls @ 50 mls/hr IVPB DAILY [facility] PRN Reason: Protocol Last Admin: 06/30/17 09:19 Dose: 50 mls/hr Metoprolol Succinate (Toprol Xl) 50 mg PO DAILY [facility] Last Admin: 06/30/17 09:19 Dose: 50 mg Pantoprazole Sodium (Protonix Inj) 40 mg IVP DAILY [facility] Last Admin: 06/30/17 09:18 Dose: 40 mg Tamsulosin HCl (Flomax) 0.8 mg PO DAILY [facility] Last Admin: 06/30/17 09:18 Dose: 0.8 mg Physical Exam - Constitutional Appears: No Acute Distress - Head Exam Head Exam: NORMAL INSPECTION - Eye Exam Eye Exam: PERRL - ENT Exam ENT Exam: Mucous Membranes Moist - Neck Exam Neck exam: Positive for: Normal Inspection - Respiratory Exam Respiratory Exam: Decreased Breath Sounds (decreased at bases) - Cardiovascular Exam Cardiovascular Exam: REGULAR RHYTHM Additional comments: Healed sternal scar. R chest large cebaceous cyst. - GI/Abdominal Exam GI & Abdominal Exam: Normal Bowel Sounds, Soft - Extremities Exam Extremities exam: Positive for: pedal edema (2+) Additional comments: Chronic swelling lower extremities. - Neurological Exam Neurological exam: Alert, Oriented x3 - Psychiatric Exam Psychiatric exam: Normal Mood - Skin Skin Exam: Pallor, Warm Results - Vital Signs Recent Vital Signs: Last Vital Signs Temp 97.6 F 06/30/17 12:49 Pulse 93 H 06/30/17 12:49 Resp 18 06/30/17 12:49 BP 151/71 H 06/30/17 12:49 Pulse Ox 99 06/30/17 12:49 reviewed J.P. - Labs Result Diagrams: 06/30/17 13:15 06/29/17 04:52 Labs: Laboratory Results - last 24 hr 06/27/17 06/28/17 06/30/17 22:18 21:00 10:49 Retic Count 4.5 H Lactate Dehydrogenase Stool Occult Blood Positive H Blood Type O POSITIVE Antibody Screen Negative Crossmatch See Detail BBK History Checked Patient has bt 06/30/17 10:49 Retic Count Lactate Dehydrogenase 882 H Stool Occult Blood Blood Type Antibody Screen Crossmatch BBK History Checked reviewed J.P. - EKG Data EKG comments: reviewed J.P. - Imaging and Cardiology Chest x-ray Status: Report reviewed by me ([email or web address]) Assessment & Plan (1) Pleural effusion, bilateral Status: Acute Priority: High (2) Thrombocytopenia Status: Chronic Priority: High (3) MDS (myelodysplastic syndrome) Status: Chronic Priority: High - Assessment and Plan (Free Text) Plan: Naris MRSA no detected, continue with Rocephin, Zithromax, Duoneb Tx. - Date & Time Date: 06/30/17 Time: 12:30
[2017-06-30 13:34] LABS: HEMATOCRIT 28.2 % (35.0-51.0); MEAN CELL VOLUME 88.7 fl (80.0-94.0); MEAN CORPUSCULAR HEMOGLOBIN 29.9 pg (27.0-31.0); MEAN CORPUSCULAR HGB CONC 33.7 g/dL (33.0-37.0); RED CELL DISTRIBUTION WIDTH 15.7 % (11.5-14.5); WHITE BLOOD COUNT 11.1 K/uL (4.8-10.8)
--- NOTE | 2017-06-30 16:08 | CP.PCM.PN ---
Subjective - Date & Time of Evaluation Date of Evaluation: 06/29/17 Time of Evaluation: 10:30 - Subjective Subjective: Patient is doing well Still with low platelet despite transfusion Feels somewhat weak. Has no fever. No episode of GI bleed. No hemoptysis. Objective - Vital Signs/Intake and Output Vital Signs (last 24 hours): Temp Pulse Resp BP Pulse Ox 98 F 87 20 150/70 96 06/30/17 15:57 06/30/17 15:57 06/30/17 15:57 06/30/17 15:57 06/30/17 15:57 - Medications Medications: Current Medications Albuterol/Ipratropium (Duoneb 3 Mg/0.5 Mg (3 Ml) Ud) [address] [facility] Last Admin: 06/30/17 15:48 Dose: 3 ml Amlodipine Besylate (Norvasc) 2.[address] [facility] Last Admin: 06/30/17 09:18 Dose: 2.5 mg Atorvastatin Calcium (Lipitor) [address] [facility] Last Admin: 06/30/17 09:17 Dose: 40 mg Gabapentin (Neurontin) [address] [facility] Last Admin: 06/30/17 09:18 Dose: 200 mg Gabapentin (Neurontin) [address] [facility] Last Admin: 06/29/17 21:03 Dose: 300 mg Home Med (Solifenacin Succinate [Vesicare]) [address] [facility] Azithromycin 500 mg/ Sodium (Chloride) 250 mls @ 250 mls/hr IVPB DAILY [facility] PRN Reason: Protocol Last Admin: 06/30/17 09:19 Dose: 250 mls/hr Ceftriaxone Sodium (Rocephin Iv 1 Gm Duplex) 50 mls @ 50 mls/hr IVPB DAILY [facility] PRN Reason: Protocol Last Admin: 06/30/17 09:19 Dose: 50 mls/hr Metoprolol Succinate (Toprol Xl) [address] [facility] Last Admin: 06/30/17 09:19 Dose: 50 mg Pantoprazole Sodium (Protonix Inj) [address] [facility] Last Admin: 06/30/17 09:18 Dose: 40 mg Tamsulosin HCl (Flomax) 0.[address] [facility] Last Admin: 06/30/17 09:18 Dose: 0.8 mg - Labs Labs: 06/30/17 13:15 06/29/17 04:52 PT 15.6 Seconds (9.8-13.1) H 06/27/17 22:18 INR 1.4 (0.9-1.2) H 06/27/17 22:18 APTT 33.7 Seconds (25.6-37.1) 06/27/17 22:18 - Head Exam Head Exam: NORMAL INSPECTION - Eye Exam Eye Exam: Normal appearance - ENT Exam ENT Exam: Mucous Membranes Moist - Respiratory Exam Respiratory Exam: Clear to Ausculation Bilateral - Cardiovascular Exam Cardiovascular Exam: REGULAR RHYTHM - GI/Abdominal Exam GI & Abdominal Exam: Normal Bowel Sounds - Neurological Exam Neurological Exam: Awake, Oriented x3 Assessment and Plan (1) Pancytopenia Status: Acute (2) Pleural effusion, bilateral Status: Acute (3) Hypertension Status: Chronic (4) MDS (myelodysplastic syndrome) Status: Chronic - Assessment and Plan (Free Text) Plan: Cont meds monitor cbc nutrion telemetry
--- NOTE | 2017-06-30 16:10 | CP.PCM.PN ---
Subjective - Date & Time of Evaluation Date of Evaluation: 06/30/17 Time of Evaluation: 16:08 - Subjective Subjective: Patient is doing very well Has no chest pain or SOB afebrile. Noted decrease in platelet to 26 Feels somewhat weak. Objective - Vital Signs/Intake and Output Vital Signs (last 24 hours): Temp Pulse Resp BP Pulse Ox 98 F 87 20 150/70 96 06/30/17 15:57 06/30/17 15:57 06/30/17 15:57 06/30/17 15:57 06/30/17 15:57 - Medications Medications: Current Medications Albuterol/Ipratropium (Duoneb 3 Mg/0.5 Mg (3 Ml) Ud) 3 ml INH RQ4 [facility] Last Admin: 06/30/17 15:48 Dose: 3 ml Amlodipine Besylate (Norvasc) 2.5 mg PO DAILY [facility] Last Admin: 06/30/17 09:18 Dose: 2.5 mg Atorvastatin Calcium (Lipitor) 40 mg PO DAILY [facility] Last Admin: 06/30/17 09:17 Dose: 40 mg Gabapentin (Neurontin) 200 mg PO DAILY [facility] Last Admin: 06/30/17 09:18 Dose: 200 mg Gabapentin (Neurontin) 300 mg PO HS [facility] Last Admin: 06/29/17 21:03 Dose: 300 mg Home Med (Solifenacin Succinate [Vesicare]) 5 mg PO DAILY [facility] Azithromycin 500 mg/ Sodium (Chloride) 250 mls @ 250 mls/hr IVPB DAILY [facility] PRN Reason: Protocol Last Admin: 06/30/17 09:19 Dose: 250 mls/hr Ceftriaxone Sodium (Rocephin Iv 1 Gm Duplex) 50 mls @ 50 mls/hr IVPB DAILY [facility] PRN Reason: Protocol Last Admin: 06/30/17 09:19 Dose: 50 mls/hr Metoprolol Succinate (Toprol Xl) 50 mg PO DAILY [facility] Last Admin: 06/30/17 09:19 Dose: 50 mg Pantoprazole Sodium (Protonix Inj) 40 mg IVP DAILY [facility] Last Admin: 06/30/17 09:18 Dose: 40 mg Tamsulosin HCl (Flomax) 0.8 mg PO DAILY [facility] Last Admin: 06/30/17 09:18 Dose: 0.8 mg - Labs Labs: 06/30/17 13:15 06/29/17 04:52 PT 15.6 Seconds (9.8-13.1) H 06/27/17 22:18 INR 1.4 (0.9-1.2) H 06/27/17 22:18 APTT 33.7 Seconds (25.6-37.1) 06/27/17 22:18 - Head Exam Head Exam: NORMAL INSPECTION - Eye Exam Eye Exam: Normal appearance - ENT Exam ENT Exam: Mucous Membranes Moist - Respiratory Exam Respiratory Exam: Clear to Ausculation Bilateral - Cardiovascular Exam Cardiovascular Exam: REGULAR RHYTHM - GI/Abdominal Exam GI & Abdominal Exam: Normal Bowel Sounds Assessment and Plan (1) Pancytopenia Status: Acute (2) Pleural effusion, bilateral Status: Acute (3) Hypertension Status: Chronic (4) MDS (myelodysplastic syndrome) Status: Chronic - Assessment and Plan (Free Text) Plan: Cont meds Cont tx nutrition cbc in am
[2017-07-01] MEDS: Albuterol-Ipratrop 3 mg / 0.5 (3 ml) UD INH SCH ×3 (04:51→11:19)
[2017-07-01 06:41] LABS: BASO % 0.1 % (0.0-2.0); EOS % 0.2 % (0.0-4.0); HEMATOCRIT 24.9 % (35.0-51.0); LYMPH # 0.5 K/uL (1.0-4.3); LYMPH % 6.6 % (20.0-40.0); MEAN CELL VOLUME 88.1 fl (80.0-94.0); MEAN CORPUSCULAR HEMOGLOBIN 30.7 pg (27.0-31.0); MEAN CORPUSCULAR HGB CONC 34.9 g/dL (33.0-37.0); MEAN PLATELET VOLUME 13.4 fl (7.2-11.7); MONO # 0.2 K/uL (0.0-0.8); MONO % 3.2 % (0.0-10.0); NEUT # 6.1 K/uL (1.8-7.0); NEUT % 89.9 % (50.0-75.0); NRBC % 0.1 % (0.0-0.0); PLATELET COUNT 49 K/uL (130-400); RED CELL DISTRIBUTION WIDTH 15.5 % (11.5-14.5); WHITE BLOOD COUNT 6.8 K/uL (4.8-10.8)
[2017-07-01 08:19] VITALS: RESP 18
[2017-07-01] MEDS: cefTRIAXone IV 1 gm in Dextros 50 ML IVPB SCH (09:39)
[2017-07-01] MEDS: Azithromycin 500 MG in Sodium Chloride 0.9% 250 ML IVPB SCH (09:39)
[2017-07-01] MEDS: Metoprolol Succinate 50 mg XL Tab PO SCH (09:40)
[2017-07-01 09:47] LABS: EOSINOPHIL 1 % (0-7); MYELOCYTE 1 % (0-0); NEUTROPHIL 86 % (42-75); REACTIVE LYMPHOCYTES 1 % (0-0); TOTAL CELLS COUNTED 100
[2017-07-01] MEDS ORDERED: Epoetin Alfa 20000 UNIT/ML Inj SC ONE (11:51)
[2017-07-01 12:28] VITALS: BP 151/74; PULSE 84; TEMP 97.7; O2SAT 95
--- NOTE | 2017-07-01 17:16 | CP.PCM.PN ---
Subjective - Date & Time of Evaluation Date of Evaluation: 07/01/17 - Subjective Subjective: F/U B/L Pleural effusions. Pt denied SOB, cough, chest congestion. Objective - Vital Signs/Intake and Output Vital Signs (last 24 hours): Temp Pulse Resp BP Pulse Ox 97.7 F 84 18 151/74 H 95 07/01/17 12:27 07/01/17 12:27 07/01/17 12:27 07/01/17 12:27 07/01/17 12:27 - Labs Labs: 07/01/17 05:00 06/29/17 04:52 PT 15.6 Seconds (9.8-13.1) H 06/27/17 22:18 INR 1.4 (0.9-1.2) H 06/27/17 22:18 APTT 33.7 Seconds (25.6-37.1) 06/27/17 22:18 - Constitutional Appears: No Acute Distress - Head Exam Head Exam: NORMAL INSPECTION - Eye Exam Eye Exam: PERRL - ENT Exam ENT Exam: Normal Exam - Neck Exam Neck Exam: Normal Inspection - Respiratory Exam Respiratory Exam: Decreased Breath Sounds (mild), NORMAL BREATHING PATTERN - Cardiovascular Exam Cardiovascular Exam: REGULAR RHYTHM Additional comments: Healed sternal scar. R chest large cebaceous cyst. - GI/Abdominal Exam GI & Abdominal Exam: Soft, Normal Bowel Sounds - Extremities Exam Extremities Exam: Pedal Edema - Neurological Exam Neurological Exam: Alert, Oriented x3 - Psychiatric Exam Psychiatric exam: Normal Mood - Skin Skin Exam: Warm Assessment and Plan (1) Pleural effusion, bilateral Status: Acute (2) Thrombocytopenia Status: Chronic (3) MDS (myelodysplastic syndrome) Status: Chronic - Assessment and Plan (Free Text) Plan: Pulmonary clear for discharge, continue with Z Pack.
== END 2017-07-01 14:49 | disposition home or self-care (01) | DRG 811 ==
LOC: H.ER 20:40 → H.ERHOLD 23:33 → H.ICU/CCU 06-28 05:30 → H.TEL 06-29 11:34
PROVIDERS: ADMIT Family Medicine; ATTEND Family Medicine
PROC: 30233R1 Transfusion of Nonautologous Platelets into Peripheral Vein, Percutaneous Approach (ICD-10-PCS; principal; 2017-06-28)
PROC: 30233N1 Transfusion of Nonautologous Red Blood Cells into Peripheral Vein, Percutaneous Approach (ICD-10-PCS; 2017-06-28)
DX: D46.9 Myelodysplastic syndrome, unspecified (principal); J18.9 Pneumonia, unspecified organism; J90 Pleural effusion, not elsewhere classified; D61.818 Other pancytopenia; D89.9 Disorder involving the immune mechanism, unspecified; I45.2 Bifascicular block; D69.6 Thrombocytopenia, unspecified; R04.2 Hemoptysis; E78.00 Pure hypercholesterolemia, unspecified; E78.5 Hyperlipidemia, unspecified; I12.9 Hypertensive chronic kidney disease with stage 1 through stage 4 chronic kidney disease, or unspecified chronic kidney disease; I25.10 Atherosclerotic heart disease of native coronary artery without angina pectoris; I25.2 Old myocardial infarction; I35.0 Nonrheumatic aortic (valve) stenosis; I73.9 Peripheral vascular disease, unspecified; J43.9 Emphysema, unspecified; L72.3 Sebaceous cyst; N18.9 Chronic kidney disease, unspecified; N40.0 Benign prostatic hyperplasia without lower urinary tract symptoms; Z79.899 Other long term (current) drug therapy; Z86.73 Personal history of transient ischemic attack (TIA), and cerebral infarction without residual deficits; Z87.01 Personal history of pneumonia (recurrent); Z90.49 Acquired absence of other specified parts of digestive tract; Z95.0 Presence of cardiac pacemaker; Z95.1 Presence of aortocoronary bypass graft; Z95.2 Presence of prosthetic heart valve; Z95.5 Presence of coronary angioplasty implant and graft; F32.9 Major depressive disorder, single episode, unspecified; K82.9 Disease of gallbladder, unspecified; R53.1 Weakness